=== PATIENT | female | born 1945 | race Caucasian/White ===

== ENCOUNTER 2017-06-02 08:07 | Emergency (ER) | payer MEDICARE ==
[2012-12-31 10:31] VITALS: BP 142/89
[2017-06-02] MEDS ORDERED: Zofran 4 MG/2 ML VIAL IV ONE (08:29)
[2017-06-02] MEDS ORDERED: SUBLIMAZE 100 MCG/2 ML IV ONE (08:29)
[2017-06-02] MEDS ORDERED: Sodium Chloride 0.9% 1000 ML 1,000 ML IV SCH (08:30)
[2017-06-02 08:31] VITALS: O2SAT 97
[2017-06-02] MEDS ORDERED: SUBLIMAZE 100 MCG/2 ML ONE (08:36)
[2017-06-02] MEDS ORDERED: Zofran 4 MG/2 ML VIAL ONE (08:36)
[2017-06-02] MEDS ORDERED: Sodium Chloride 0.9% 1000 ML 1,000 ML ONE (08:37)
--- NOTE | 2017-06-02 08:54 | ERPHSYRPT ---
- History of Present Illness Time Seen by Provider: 06/02/17 08:18 Historian: patient, family () Patient Subjective Stated Complaint: pt here for abd pain and vomiting , was dx with diverticulitis and placed on antibotics and states is not feeling better. Triage Nursing Assessment: pt alert, walked in, resp easy, skin w/d pink. abd soft, tender to touch, bsx4 Physician History: CC: abd pain Hx: 71 y/o patient of Dr Atkinson. She has vomiting and abdominal pain. She was admitted at [facility] this week for diverticulitis. She went home on 2 unknown abtx. She has continued vomiting. Some lower abd pain. Scant stools. No fever or chills. She has malaise. She came here as the vomiting is continuing. Severity of Pain-Max: moderate Severity of Pain-Current: moderate Allergies/Adverse Reactions: No Known Drug Allergies Allergy (Verified 11/12/14 08:41) Home Medications: Cyclobenzaprine HCl 10 mg [Flexeril 10 MG] 10 mg PO DAILY 12/31/12 [ History] Diclofenac Sodium 75 mg PO BID 12/31/12 [History] Levothyroxine Sodium 50 Mcg [Synthroid 50 Mcg] 50 mcg PO DAILY 12/31/12 [ History] Metoprolol Succinate 50 mg [Toprol Xl 50 MG] 50 mg PO DAILY 12/31/12 [ History] Olmesartan/Amlodipin/Hcthiazid [Tribenzor 40-5-25 mg Tablet] 1 each PO DAILY 12/06 [History] Calcium 1 tab PO DAILY 11/08/14 [History] Cholecalciferol (Vitamin D3) [Vitamin D] 3 tab PO DAILY 11/08/14 [History] Multivitamin [Multivitamins] 1 tab PO DAILY 11/08/14 [History] Hx Influenza Vaccination/Date Given: Yes Hx Pneumococcal Vaccination/Date Given: Yes Immunizations Up to Date: Yes - Review of Systems Constitutional: Malaise, No Fever, No Chills Eyes: No Symptoms Ears, Nose, & Throat: No Symptoms Respiratory: No Cough Cardiac: No Chest Pain Abdominal/Gastrointestinal: Abdominal Pain, Nausea, Vomiting, No Diarrhea Genitourinary Symptoms: No Dysuria Skin: No Rash Neurological: No Focal Weakness, No Parasthesia All Other Systems: Reviewed and Negative - Past Medical History Pertinent Past Medical History: Yes Neurological History: No Pertinent History ENT History: No Pertinent History Cardiac History: High Cholesterol, Hypertension Respiratory History: No Pertinent History Endocrine Medical History: Diabetes Type II, Hypothyroidism Musculoskeletal History: Fibromyalgia GI Medical History: Diverticulitis, GERD History: No Pertinent History Psycho-Social History: No Pertinent History Female Reproductive Disorders: No Pertinent History - Past Surgical History Past Surgical History: Yes Neuro Surgical History: No Pertinent History Cardiac: No Pertinent History Respiratory: No Pertinent History Gastrointestinal: Appendectomy, Cholecystectomy Genitourinary: Other Musculoskeletal: Orthopedic Surgery Female Surgical History: Hysterectomy - Social History Smoking Status: Never smoker Exposure to second hand smoke: No Drug Use: none Patient Lives Alone: No - Female History Hx Last Menstrual Period: post - Nursing Vital Signs Nursing Vital Signs: Initial Vital Signs Temperature 97.5 F 06/02/17 08:23 Pulse Rate 64 06/02/17 08:23 Respiratory Rate 18 06/02/17 08:23 Blood Pressure 142/94 06/02/17 08:23 O2 Sat by Pulse Oximetry 97 06/02/17 08:23 Pain Scale Pain Intensity 2 - Physical Exam General Appearance: alert, other (ambulatory) Eye Exam: PERRL/EOMI Ears, Nose, Throat Exam: normal ENT inspection, moist mucous membranes Neck Exam: normal inspection, non-tender, supple Respiratory Exam: normal breath sounds Cardiovascular Exam: regular rate/rhythm Gastrointestinal/Abdomen Exam: soft, tenderness (mild lower, nondistended, no guarding, no mass) Back Exam: normal inspection, No CVA tenderness Extremity Exam: normal inspection, normal range of motion Neurologic Exam: alert, oriented x 3, cooperative, night court magistrate II-XII nml as tested, sensation nml, No motor deficits Skin Exam: warm, dry, No rash SpO2 Interpretation: normal SpO2: 97 Oxygen Delivery: Room Air - Course Nursing assessment & vital signs reviewed: Yes EKG Interpreted by Me: RATE (55), Sinus Zach, NORMAL AXIS, NORMAL INTERVALS ( QTc 410), NORMAL QRS, NORMAL ST-T, Other (left atrial enlargement) - Radiology Exams AAS X-ray Interpretation: Reviewed by me (no obstr or free air) Ordered Tests: Active Orders 24 hr Category Date Time Status Clean Catch Urine Specimen STAT Care 06/02/17 08:29 Active EKG-ER Only STAT Care 06/02/17 08:29 Active IV Insertion STAT Care 06/02/17 08:29 Active NPO (ED) STAT Care 06/02/17 08:29 Active PO Popsicle STAT Care 06/02/17 09:59 Active OBSTR/ACUTE ABDOMEN SERIES Stat Exams 06/02/17 08:30 Completed CBC W DIFF Stat Lab 06/02/17 08:29 Completed CMP Stat Lab 06/02/17 08:29 Completed CULTURE,URINE Stat Lab 06/02/17 08:30 Received LIPASE Stat Lab 06/02/17 08:29 Completed Lactic Acid Stat Lab 06/02/17 08:29 Completed UA W/ MICROSCOPIC Stat Lab 06/02/17 08:30 Completed Medication Summary Generic Name Dose Route Start Last Admin Trade Name Freq PRN Reason Stop Dose Admin Sodium Chloride 1,000 mls @ 100 mls/hr 06/02/17 08:30 06/02/17 09:04 Sodium Chloride 0.9% 1000 Ml IV 07/02/17 08:29 100 mls/hr .Q10H STEVEN Administration Discontinued Medications Generic Name Dose Route Start Last Admin Trade Name Freq PRN Reason Stop Dose Admin Fentanyl Citrate 50 mcg 06/02/17 08:29 06/02/17 09:03 Sublimaze 100 Mcg/2 Ml IV 06/02/17 08:30 50 mcg STAT ONE Administration Fentanyl Citrate Confirm 06/02/17 08:36 Sublimaze 100 Mcg/2 Ml Administered 06/02/17 08:37 Dose 100 mcg .ROUTE .STK-MED ONE Ondansetron HCl 4 mg 06/02/17 08:29 06/02/17 09:04 Zofran 4 Mg/2 Ml Vial IV 06/02/17 08:30 4 mg STAT ONE Administration Ondansetron HCl Confirm 06/02/17 08:36 Zofran 4 Mg/2 Ml Vial Administered 06/02/17 08:37 Dose 4 mg .ROUTE .STK-MED ONE Lab/Rad Data: Laboratory Result Diagrams 06/02/17 08:29 06/02/17 08:29 Laboratory Results 06/02/17 06/02/17 06/02/17 Range/Units 08:30 08:29 08:29 WBC (4.0-10.5) K/mm3 RBC (4.1-5.4) M/mm3 Hgb (12.0-16.0) gm/dl Hct (35-47) % MCV (78-100) fl MCH (26-32) pg MCHC (32-36) g/dl RDW (11.5-14.0) % Plt Count (150-450) K/mm3 MPV (6-9.5) fl Gran % (36.0-66.0) % Lymphocytes % (24.0-44.0) % Monocytes % (0.0-12.0) % Eosinophils % (0.00-5.0) % Basophils % (0.0-0.4) % Basophils # (0-0.4) Sodium 129 L (136-145) mEq/L Potassium 3.2 L (3.5-5.1) mEq/L Chloride 95 L (98-107) mEq/L Carbon Dioxide 23.4 (21-32) mEq/L Anion Gap 14.2 (5-15) MEQ/L BUN 16 (9-20) mg/dL Creatinine 1.07 (0.55-1.30) mg/dl Estimated GFR 54 ML/MIN Glucose 148 H (70-110) MG/DL Lactic Acid 1.3 (0.4-2.0) Calcium 9.6 (8.5-10.1) mg/dL Total Bilirubin 0.50 (0.2-1.0) mg/dL AST 20 (15-37) U/L ALT 15 (12-78) U/L Alkaline Phosphatase 87 (46-116) U/L Serum Total Protein 7.0 (6.4-8.2) gm/dL Albumin 3.6 (3.4-5.0) g/dL Lipase 108 (73-393) U/L Ur Collection Type CLEAN CATCH Urine Color HENRY (YELLOW) Urine Appearance HAZY (CLEAR) Urine pH 6.0 (5-6) Ur Specific [place] 1.020 (1.005-1.025) Urine Protein 100 (Negative) Urine Ketones SMALL (NEGATIVE) Urine Blood NEGATIVE (0-5) Ricky/ul Urine Nitrite NEGATIVE (NEGATIVE) Urine Bilirubin NEGATIVE (NEGATIVE) Urine Urobilinogen NORMAL (0-1) mg/dL Ur Leukocyte Esterase 2+ (NEGATIVE) Urine Microscopic RBC 0-2 (0-2) /HPF Urine Microscopic WBC 2-5 (0-5) /HPF Ur Epithelial Cells MODERATE (FEW) /HPF Urine Bacteria MODERATE (NEGATIVE) /HPF Hyaline Casts 25-50 (0-2) /LPF Urine Mucus MODERATE (NEGATIVE) /HPF Urine Culture Reflexed YES (NO) Urine Glucose NEGATIVE (NEGATIVE) mg/dL Specimen Received 06-02-17 0900 06/02/17 Range/Units 08:29 WBC 12.9 H (4.0-10.5) K/mm3 RBC 4.83 (4.1-5.4) M/mm3 Hgb 14.2 (12.0-16.0) gm/dl Hct 42.2 (35-47) % MCV 87.4 (78-100) fl MCH 29.4 (26-32) pg MCHC 33.6 (32-36) g/dl RDW 13.2 (11.5-14.0) % Plt Count 480 H (150-450) K/mm3 MPV 9.5 (6-9.5) fl Gran % 79.2 H (36.0-66.0) % Lymphocytes % 12.2 L (24.0-44.0) % Monocytes % 8.2 (0.0-12.0) % Eosinophils % 0.2 (0.00-5.0) % Basophils % 0.2 (0.0-0.4) % Basophils # 0.03 (0-0.4) Sodium (136-145) mEq/L Potassium (3.5-5.1) mEq/L Chloride (98-107) mEq/L Carbon Dioxide (21-32) mEq/L Anion Gap (5-15) MEQ/L BUN (9-20) mg/dL Creatinine (0.55-1.30) mg/dl Estimated GFR ML/MIN Glucose (70-110) MG/DL Lactic Acid (0.4-2.0) Calcium (8.5-10.1) mg/dL Total Bilirubin (0.2-1.0) mg/dL AST (15-37) U/L ALT (12-78) U/L Alkaline Phosphatase (46-116) U/L Serum Total Protein (6.4-8.2) gm/dL Albumin (3.4-5.0) g/dL Lipase (73-393) U/L Ur Collection Type Urine Color (YELLOW) Urine Appearance (CLEAR) Urine pH (5-6) Ur Specific [place] (1.005-1.025) Urine Protein (Negative) Urine Ketones (NEGATIVE) Urine Blood (0-5) Ricky/ul Urine Nitrite (NEGATIVE) Urine Bilirubin (NEGATIVE) Urine Urobilinogen (0-1) mg/dL Ur Leukocyte Esterase (NEGATIVE) Urine Microscopic RBC (0-2) /HPF Urine Microscopic WBC (0-5) /HPF Ur Epithelial Cells (FEW) /HPF Urine Bacteria (NEGATIVE) /HPF Hyaline Casts (0-2) /LPF Urine Mucus (NEGATIVE) /HPF Urine Culture Reflexed (NO) Urine Glucose (NEGATIVE) mg/dL Specimen Received - Progress Progress Note: 06/02/17 11:18 She ate a popsicle and has had no vomiting here. She is on cipro and flagyl. She was told needs follow up with Dr Atkinson in 1-2 days and Na needs to be rechecked. Will add zofran at home. Counseled pt/family regarding: lab results, diagnosis, need for follow-up, rad results - Departure Time of Disposition: 11:18 Departure Disposition: Home Clinical Impression: Vomiting, Diverticulitis, Hyponatremia Condition: Stable Critical Care Time: No Referrals: GRACIE ATKINSON [Primary Care Provider] - Instructions: Vomiting -- Adult, Diverticulitis Additional Instructions: Rx zofran to [facility]. Continue cipro and flagyl. Spencer diet. Call to see Dr Atkinson in 1-2 days. You will need to recheck Sodium level this week. Return for fever, passing blood, confusion, or concerns. Tylenol as directed for discomfort. Prescriptions: Ondansetron ODT 4 MG [Zofran Odt 4 mg] 1 tab PO Q6H PRN PRN #10 tab.rapdis PRN Reason: Nausea/Vomiting
[2017-06-02 09:03] LABS: BASOPHIL % 0.2 % (0.0-0.4); Basophil (Absolute #) 0.03 (0-0.4); Eosinophil % 0.2 % (0.00-5.0); Eosinophil (Absolute #) 0.02 (0-0.5); Granulocyte Absolute (ANC) 10.24 (1.4-6.9); Granulocytes % 79.2 % (36.0-66.0); Hematocrit 42.2 % (35-47); Hemoglobin 14.2 gm/dl (12.0-16.0); Lymphocyte (Absolute #) 1.58 (1.0-4.6); Lymphocytes % 12.2 % (24.0-44.0); Mean Cell Volume 87.4 fl (78-100); Mean Corpuscular Hemoglobin 29.4 pg (26-32); Mean Corpuscular Hgb Concent. 33.6 g/dl (32-36); Mean Platelet Volume 9.5 fl (6-9.5); Monocyte (Absolute #) 1.06 (0.0-1.3); Monocytes % 8.2 % (0.0-12.0); Platelet Count 480 K/mm3 (150-450); Red Blood Count 4.83 M/mm3 (4.1-5.4); Red Cell Distribution Width 13.2 % (11.5-14.0); White Blood Count 12.9 K/mm3 (4.0-10.5)
[2017-06-02 09:28] LABS: Appearance HAZY (CLEAR); Bilirubin NEGATIVE (NEGATIVE); Blood NEGATIVE Ery/ul (0-5); Glucose NEGATIVE (NEGATIVE); Ketones SMALL (NEGATIVE); Leukocyte Esterase 2+ (NEGATIVE); Nitrite NEGATIVE (NEGATIVE); Protein,Urine Dip 100 (Negative); Urobilinogen NORMAL mg/dL (0-1)
[2017-06-02 09:31] LABS: Bacteria MODERATE /HPF (NEGATIVE); Epithelial Cells MODERATE /HPF (FEW); Hyaline Casts 25-50 /LPF (0-2); Mucus MODERATE /HPF (NEGATIVE)
[2017-06-02 09:31] LABS: ALBUMIN 3.6 g/dL (3.4-5.0); ANION GAP 14.2 MEQ/L (5-15); BILIRUBIN,TOTAL 0.5 mg/dL (0.2-1.0); Calcium 9.6 mg/dL (8.5-10.1); Carbon Dioxide 23.4 mEq/L (21-32); Creatinine 1 1.07 mg/dl (0.55-1.30); Potassium 3.2 mEq/L (3.5-5.1)
--- NOTE | 2017-06-02 10:42 | XRAY ---
Indication: Abdominal pain and vomiting. Comparison: Chest exam February 09, 2016. 2 views of the abdomen nonacute and nonobstructed with cholecystotomy clips. Solid organs unremarkable. Osseous structures intact with lower lumbar degenerative changes. Single PA chest again demonstrates normal heart, lungs, and bony thorax. Impression: Negative abdomen. Normal 1 view chest.
[2017-06-02 11:20] VITALS: BP 126/50; PULSE 62
== END 2017-06-02 11:29 | disposition home or self-care (01) ==
LOC: ED 08:07
DX: R11.10 Vomiting, unspecified (principal); K57.92 Diverticulitis of intestine, part unspecified, without perforation or abscess without bleeding; E87.1 Hypo-osmolality and hyponatremia; R53.81 Other malaise; Z79.899 Other long term (current) drug therapy
CPT/HCPCS: 36000; 36415; 74022; 80053; 81000; 83605; 83690; 85025; 87086; 93005; 96360; 96361; 96374; 96375; 99284; J2405; J3010

== ENCOUNTER 2017-06-04 09:31 | Inpatient (IN) | payer MEDICARE ==
[2017-06-04] MEDS ORDERED: Sodium Chloride 0.9% 10 ML FLUSH Syringe IV PRN (11:45)
[2017-06-04] MEDS ORDERED: Norco 10/325 MG Tablet PO PRN (11:46)
[2017-06-04 13:41] LABS: BASOPHIL % 0.2 % (0.0-0.4); Basophil (Absolute #) 0.02 (0-0.4); Eosinophil % 0.4 % (0.00-5.0); Eosinophil (Absolute #) 0.05 (0-0.5); Granulocyte Absolute (ANC) 9.53 (1.4-6.9); Hematocrit 40.4 % (35-47); Hemoglobin 13.7 gm/dl (12.0-16.0); Lymphocyte (Absolute #) 1.99 (1.0-4.6); Lymphocytes % 15.7 % (24.0-44.0); Mean Corpuscular Hemoglobin 29.8 pg (26-32); Mean Corpuscular Hgb Concent. 33.9 g/dl (32-36); Mean Platelet Volume 9.7 fl (6-9.5); Monocyte (Absolute #) 1.11 (0.0-1.3); Monocytes % 8.7 % (0.0-12.0); Platelet Count 481 K/mm3 (150-450); Red Blood Count 4.59 M/mm3 (4.1-5.4); White Blood Count 12.7 K/mm3 (4.0-10.5)
[2017-06-04 13:58] LABS: ALBUMIN 3.5 g/dL (3.4-5.0); ANION GAP 12.7 MEQ/L (5-15); BILIRUBIN,TOTAL 0.4 mg/dL (0.2-1.0); Calcium 9.4 mg/dL (8.5-10.1); Carbon Dioxide 27.7 mEq/L (21-32); Creatinine 1 1.17 mg/dl (0.55-1.30); MAGNESIUM 2.1 mg/dL (1.8-2.4); Potassium 3.3 mEq/L (3.5-5.1)
--- NOTE | 2017-06-04 14:22 | XRAY ---
Indication: Vomiting, dehydration, diverticulitis. Comparison: June 02, 2017. 2 views of the abdomen demonstrates nonspecific nonobstructed bowel gas pattern with minimal fluid leveling. Stable cholecystectomy clips and lower lumbar degenerative changes. Remaining solid organs are unremarkable. Stable PA chest again demonstrates normal heart, lungs, and bony thorax. Impression: Nonacute nonobstructed abdomen. Stable normal 1 view chest.
[2017-06-04] MEDS: FLAGYL 500 MG IVPB 500 MG/100 ML BAG IV SCH ×2 (14:26→21:27)
[2017-06-04] MEDS: Sodium Chloride 0.9% 10 ML FLUSH Syringe IV SCH ×2 (14:26→21:35)
[2017-06-04] MEDS: Levofloxacin 500MG/100ML D5W 500 MG/100 ML BAG IV SCH (15:00)
[2017-06-04] MEDS: Zofran 4 MG/2 ML VIAL IV PRN ×2 (15:00→21:31)
[2017-06-04 16:12] LABS: Appearance HAZY (CLEAR); Ph 6.5 (5-6); Specific Gravity 1.015 (1.005-1.025)
[2017-06-04 16:21] LABS: Bacteria FEW /HPF (NEGATIVE); Bilirubin NEGATIVE (NEGATIVE); Blood NEGATIVE Ery/ul (0-5); Epithelial Cells FEW /HPF (FEW); Glucose NEGATIVE (NEGATIVE); Ketones SMALL (NEGATIVE); Leukocyte Esterase NEGATIVE (NEGATIVE); Nitrite NEGATIVE (NEGATIVE); Protein,Urine Dip NEGATIVE (Negative); Urobilinogen NORMAL mg/dL (0-1); WBC 0-2 /HPF (0-5)
[2017-06-04] MEDS ORDERED: ZOFRAN ODT 4 MG PO PRN (16:42)
[2017-06-04] MEDS: NORVASC 5 MG PO SCH (17:49)
[2017-06-04] MEDS: Toprol Xl 100 MG PO SCH (17:49)
[2017-06-04] MEDS: Ecotrin 325 MG PO SCH (17:50)
[2017-06-04] MEDS: Benicar 20 MG PO SCH (17:51)
[2017-06-04] MEDS: hydroDIURIL 25 MG PO SCH (17:51)
[2017-06-04] MEDS: SYNTHROID 75 MCG PO SCH (17:52)
[2017-06-05] MEDS: Zofran 4 MG/2 ML VIAL IV PRN ×2 (05:52→20:00)
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
[2017-06-05 08:54] LABS: Hematocrit 38.6 % (35-47); Hemoglobin 13.1 gm/dl (12.0-16.0); Mean Cell Volume 88.3 fl (78-100); Mean Corpuscular Hgb Concent. 33.9 g/dl (32-36); Mean Platelet Volume 9.5 fl (6-9.5); Platelet Count 473 K/mm3 (150-450); Red Blood Count 4.37 M/mm3 (4.1-5.4); Red Cell Distribution Width 13.1 % (11.5-14.0)
[2017-06-05 09:45] LABS: ANION GAP 10.5 MEQ/L (5-15); Calcium 8.8 mg/dL (8.5-10.1); Carbon Dioxide 29.4 mEq/L (21-32); Creatinine 1 1.01 mg/dl (0.55-1.30); Potassium 3.3 mEq/L (3.5-5.1)
[2017-06-05] MEDS ORDERED: Sodium Chloride 0.9% 500 ML 500 ML IV ONE (09:50)
[2017-06-05] MEDS: PROTONIX 40 MG IV IV SCH (09:54)
[2017-06-05] MEDS: SYNTHROID 75 MCG PO SCH (09:58)
[2017-06-05] MEDS: hydroDIURIL 25 MG PO SCH (09:58)
[2017-06-05] MEDS: Benicar 20 MG PO SCH (09:58)
[2017-06-05] MEDS: NORVASC 5 MG PO SCH (09:58)
[2017-06-05] MEDS: Toprol Xl 100 MG PO SCH (09:59)
[2017-06-05] MEDS: Ecotrin 325 MG PO SCH (09:59)
[2017-06-05] MEDS ORDERED: [UNRECOGNIZED DRUG - OTHER] PO SCH (10:00)
[2017-06-05] MEDS ORDERED: OLMESARTAN PO SCH (10:00)
[2017-06-05] MEDS ORDERED: HYDROCHLOROTHIAZIDE PO SCH (10:00)
[2017-06-05] MEDS ORDERED: NON-FORMULARY ITEM (Amlodipine Besylate [Norvasc] 2.5 MG) PO SCH (10:00)
[2017-06-05] MEDS: Sodium Chloride 0.9% W/ 20 mEq KCl/LITER 1,000 ML IV SCH (10:32)
[2017-06-05] MEDS: FLAGYL 500 MG IVPB 500 MG/100 ML BAG IV SCH ×3 (10:33→21:00)
[2017-06-05] MEDS: Levofloxacin 500MG/100ML D5W 500 MG/100 ML BAG IV SCH (11:44)
[2017-06-06] MEDS: Sodium Chloride 0.9% W/ 20 mEq KCl/LITER 1,000 ML IV SCH ×2 (00:57→10:32)
[2017-06-06 06:10] LABS: Granulocyte Absolute (ANC) 5.12 (1.4-6.9); Hematocrit 35.9 % (35-47); Mean Cell Volume 88.9 fl (78-100); Mean Corpuscular Hemoglobin 29.7 pg (26-32); Mean Corpuscular Hgb Concent. 33.4 g/dl (32-36); Mean Platelet Volume 9.6 fl (6-9.5); Platelet Count 412 K/mm3 (150-450); Red Blood Count 4.04 M/mm3 (4.1-5.4); Red Cell Distribution Width 13.3 % (11.5-14.0); White Blood Count 9.1 K/mm3 (4.0-10.5)
[2017-06-06 06:47] LABS: ANION GAP 10.5 MEQ/L (5-15); BLOOD UREA NITROGEN 9 mg/dL (9-20); CHLORIDE 101 mEq/L (98-107); Calcium 8.5 mg/dL (8.5-10.1); Carbon Dioxide 25.3 mEq/L (21-32); Creatinine 1 0.81 mg/dl (0.55-1.30); EST GLOMERULAR FILTRATION RATE > 60 ML/MIN; Glucose 104 MG/DL (70-110); Potassium 3.2 mEq/L (3.5-5.1); SODIUM 134 mEq/L (136-145)
--- NOTE | 2017-06-06 09:11 | PCM.NOTE ---
Date and Time: 06/06/17906 Subjective Assessment: Pt had some nausea last night but not through the day yesterday. She ate breakfast this morning (full liquid) and tolerated it well. All day yesterday when she ate she had watery diarrhea (sample taken for C. diff and pending). This morning she had a stool but it was thicker. Objective Exam General Appearance: no apparent distress, alert Neurologic Exam: oriented x 3, cooperative Skin Exam: normal color, warm, dry, No rash Respiratory Exam: normal breath sounds, lungs clear, No crackles/rales, No rhonchi, No wheezing Cardiovascular Exam: regular rate/rhythm, normal heart sounds, murmur (II/ sys murmur) Gastrointestinal/Abdomen Exam: soft, normal bowel sounds, tenderness (very mild RLQ), No distention, No guarding, No rebound Extremity Exam: swelling (mild gen non pitting edema LE bilat) OBJECTIVE DATA Vital Signs: Vital Signs - 24 hr Temp Pulse Resp BP Pulse Ox 06/06/17 07:06 98.1 F 67 18 120/78 96 06/06/17 04:00 97.9 F 69 18 141/67 96 06/06/17 00:05 98.8 F 71 18 106/54 96 06/05/17 20:00 98.3 F 63 20 115/60 96 06/05/17 16:00 99.4 F 62 20 117/56 93 L 06/05/17 12:00 98.4 F 64 18 126/58 95 Pain Assessment - Last Documented Pain Intensity 0 Pain Scale Used 0-10 Pain Scale Intake and Output: Intake & Output 06/03/17 06/04/17 06/05/17 06/06/17 11:59 11:59 11:59 11:59 Intake Total 2540 4702 Output Total 2600 4600 Balance -60 102 Weight 104.2 kg Lab Results: Lab Results-Last 24 Hours 06/05/17 06/05/17 06/06/17 Range/Units 08:30 08:30 05:43 WBC 10.0 9.1 (4.0-10.5) K/mm3 RBC 4.37 4.04 L (4.1-5.4) M/mm3 Hgb 13.1 12.0 (12.0-16.0) gm/dl Hct 38.6 35.9 (35-47) % MCV 88.3 88.9 (78-100) fl MCH 30.0 29.7 (26-32) pg MCHC 33.9 33.4 (32-36) g/dl RDW 13.1 13.3 (11.5-14.0) % Plt Count 473 H 412 (150-450) K/mm3 MPV 9.5 9.6 H (6-9.5) fl Sodium 128 L (136-145) mEq/L Potassium 3.3 L (3.5-5.1) mEq/L Chloride 91 L (98-107) mEq/L Carbon Dioxide 29.4 (21-32) mEq/L Anion Gap 10.5 (5-15) MEQ/L BUN 16 (9-20) mg/dL Creatinine 1.01 (0.55-1.30) mg/dl Estimated GFR 58 ML/MIN Glucose 120 H (70-110) MG/DL Calcium 8.8 (8.5-10.1) mg/dL 06/06/17 Range/Units 05:43 WBC (4.0-10.5) K/mm3 RBC (4.1-5.4) M/mm3 Hgb (12.0-16.0) gm/dl Hct (35-47) % MCV (78-100) fl MCH (26-32) pg MCHC (32-36) g/dl RDW (11.5-14.0) % Plt Count (150-450) K/mm3 MPV (6-9.5) fl Sodium 134 L (136-145) mEq/L Potassium 3.2 L (3.5-5.1) mEq/L Chloride 101 (98-107) mEq/L Carbon Dioxide 25.3 (21-32) mEq/L Anion Gap 10.5 (5-15) MEQ/L BUN 9 (9-20) mg/dL Creatinine 0.81 (0.55-1.30) mg/dl Estimated GFR > 60 ML/MIN Glucose 104 (70-110) MG/DL Calcium 8.5 (8.5-10.1) mg/dL Radiology Exams: Radiology Procedures Category Date Time Status OBSTR/ACUTE ABDOMEN SERIES Routine Exams 06/04/17 12:45 Completed Assessment/Plan (1) Diverticulitis Current Visit: Yes Status: Acute Assessment & Plan: Improved, on IV flagyl and levaquin. Her nausea is improved. Will see how diarrhea does today. Plan, tentatively, is to send pt home tomorrow if less nausea and diarrhea. Will advance to bland diet this afternoon if she tolerates breakfast well. Code(s): K57.92 - DVTRCLI OF INTEST, PART UNSP, W/O PERF OR ABSCESS W/O BLEED (2) Hypokalemia Current Visit: Yes Status: Acute Assessment & Plan: will add 20 mEq K daily to medication regimen Code(s): E87.6 - HYPOKALEMIA (3) Nausea Current Visit: Yes Status: Acute Assessment & Plan: improved Code(s): R11.0 - NAUSEA (4) Diarrhea Current Visit: Yes Status: Acute Code(s): R19.7 - DIARRHEA, UNSPECIFIED (5) Hyponatremia Current Visit: Yes Status: Acute Assessment & Plan: improved, from 125 on admission to 134 today. Code(s): E87.1 - HYPO-OSMOLALITY AND HYPONATREMIA
[2017-06-06] MEDS: FLAGYL 500 MG IVPB 500 MG/100 ML BAG IV SCH ×3 (09:45→20:36)
[2017-06-06] MEDS: PROTONIX 40 MG IV IV SCH (09:45)
[2017-06-06] MEDS: NORVASC 5 MG PO SCH (09:45)
[2017-06-06] MEDS: hydroDIURIL 25 MG PO SCH (09:46)
[2017-06-06] MEDS: SYNTHROID 75 MCG PO SCH (09:46)
[2017-06-06] MEDS: Benicar 20 MG PO SCH (09:46)
[2017-06-06] MEDS: Toprol Xl 100 MG PO SCH (09:47)
[2017-06-06] MEDS: Klor Con 10 MEQ PO SCH (09:47)
[2017-06-06] MEDS: Ecotrin 325 MG PO SCH (09:47)
[2017-06-06] MEDS: Sodium Chloride 0.9% 10 ML FLUSH Syringe IV SCH ×3 (09:53→20:36)
[2017-06-06] MEDS: Levofloxacin 500MG/100ML D5W 500 MG/100 ML BAG IV SCH (10:32)
[2017-06-06 10:45] LABS: 027 TOX PROD PRESUMPTIVE NEGATIVE (NEGATIVE); TOXIGENIC C. DIFF ORG NEGATIVE (NEGATIVE)
[2017-06-06 11:42] LABS: Eosinophil 1 % (0.00-3.0); Lymphocytes 33 % (24-44); Monocyte 2 % (0.0-12.0); Neutrophils 64 % (36.0-66.0); Total Cells Counted 100
[2017-06-06 11:43] LABS: Platelet Estimate NORMAL (NORMAL)
[2017-06-07] MEDS: Sodium Chloride 0.9% W/ 20 mEq KCl/LITER 1,000 ML IV SCH (01:38)
[2017-06-07 05:05] VITALS: O2SAT 95
--- NOTE | 2017-06-07 08:58 | PCM.DS ---
Discharge Summary Date of Admission: 06/05/17 09:31 Admitting Physician: GRACIE WALLIS Primary Care Provider: GRACIE WALLIS Allergies Allergies No Known Drug Allergies Allergy (Verified 06/04/17 11:36) Hospital Summary - Hospital Course Hospital Course: Pt admitted for diverticulitis and dehydration after seeing SACK FILLER in office (I checked pt as well). She had been in [facility] overnight and went home, didn't feel any better, still had abd pain and nausea. Her nausea was persistentt her first 2 d in [facility]. Today she is denying nause. Keyur full liquids. No longer complaining of diarrhea (her c. diff neg yesterday). Will feed bland diet and d /c after lunch, depending on the weather and road conditions. - Vitals & Intake/Output Vital Signs: Vital Signs Temperature 98.6 F 06/07/17 08:00 Pulse Rate 72 06/07/17 08:00 Respiratory Rate 22 06/07/17 08:00 Blood Pressure 146/76 06/07/17 08:00 O2 Sat by Pulse Oximetry 95 06/07/17 08:00 Intake & Output: Intake & Output 06/04/17 06/05/17 06/06/17 06/07/17 11:59 11:59 11:59 11:59 Intake Total 2540 4902 4066 Output Total 2600 4600 3100 Balance -60 302 966 Weight 104.2 kg - Lab Result Diagrams: 06/06/17 05:43 06/06/17 05:43 Lab Results-Last 24 Hrs: Lab Results-Last 24 Hours 06/06/17 06/06/17 Range/Units 05:43 07:50 Segmented Neutrophils 64 (36.0-66.0) % Lymphocytes (Manual) 33 (24-44) % Monocytes (Manual) 2 (0.0-12.0) % Eosinophils (Manual) 1 (0.00-3.0) % Differential Comment NORMAL Platelet Estimate NORMAL (NORMAL) Stl C. diff Tox B Gene NEGATIVE (NEGATIVE) C.difficile [id number] PRESUMPTIVE NEGATIVE (NEGATIVE) Discharge Exam General Appearance: no apparent distress, alert Neurologic Exam: oriented x 3, cooperative Skin Exam: normal color, warm, dry, No rash Respiratory Exam: normal breath sounds, lungs clear, No crackles/rales, No rhonchi, No wheezing Cardiovascular Exam: regular rate/rhythm, normal heart sounds, murmur (II/ as usual) Gastrointestinal/Abdomen Exam: soft, normal bowel sounds, No tenderness, No distention, No mass Extremity Exam: No pedal edema, No swelling Back Exam: normal inspection, No rash Final Diagnosis/Problem List - Final Discharge Diagnosis/Problem (1) Diverticulitis Current Visit: Yes Status: Acute Assessment & Plan: Much improved. Home today on bland diet, levaquin and flagyl. F/u in 1 wk with me. (2) Hypokalemia Current Visit: Yes Status: Acute Assessment & Plan: recheck this a.m. (3) Nausea Current Visit: Yes Status: Resolved (4) Diarrhea Current Visit: Yes Status: Resolved (5) Hyponatremia Current Visit: Yes Status: Acute Assessment & Plan: recheck - Discharge Disposition: Home, Self-Care Condition: Stable Prescriptions: New Levofloxacin [Levaquin] 500 mg PO DAILY #7 tablet Continue Diclofenac Sodium 75 mg PO BID Multivitamin [Multivitamins] 1 tab PO DAILY Ondansetron ODT 4 MG [Zofran Odt 4 mg] 1 tab PO Q6H PRN PRN #10 tab.rapdis PRN Reason: Nausea/Vomiting Amlodipine Besylate [Norvasc] 2.5 mg PO DAILY Metoprolol Succinate 100 mg [Toprol Xl 100 MG] 100 mg PO DAILY Olmesartan/Hydrochlorothiazide [Benicar Hct 40-25 mg Tablet] 1 each PO DAILY Levothyroxine Sodium 75 Mcg [Synthroid 75 Mcg] 75 mcg PO DAILY Aspirin [Aspirin EC] 325 mg PO DAILY Cholecalciferol (Vitamin D3) [Vitamin D] 2 cap PO DAILY Pitavastatin Calcium [Livalo] 1 mg PO BID Metronidazole 500 mg [Flagyl 500 MG] 500 mg PO TID #15 tablet Discontinued Ciprofloxacin [Cipro] 500 mg PO BID Follow up with: GRACIE WALLIS [Primary Care Provider] - 1 Week Forms: Patient Portal Information
[2017-06-07 09:13] LABS: Hematocrit 36.4 % (35-47); Hemoglobin 12.1 gm/dl (12.0-16.0); Mean Corpuscular Hgb Concent. 33.2 g/dl (32-36); Mean Platelet Volume 9.5 fl (6-9.5); Platelet Count 450 K/mm3 (150-450); Red Cell Distribution Width 14.1 % (11.5-14.0); White Blood Count 8.4 K/mm3 (4.0-10.5)
[2017-06-07 09:17] LABS: ANION GAP 10.2 MEQ/L (5-15); BLOOD UREA NITROGEN 5 mg/dL (9-20); CHLORIDE 101 mEq/L (98-107); Calcium 8.6 mg/dL (8.5-10.1); Creatinine 1 0.87 mg/dl (0.55-1.30); EST GLOMERULAR FILTRATION RATE > 60 ML/MIN; Glucose 152 MG/DL (70-110); Potassium 3.9 mEq/L (3.5-5.1); SODIUM 134 mEq/L (136-145)
[2017-06-07 09:18] LABS: Mean Corpuscular Hemoglobin 30.2 pg (26-32)
[2017-06-07] MEDS: FLAGYL 500 MG IVPB 500 MG/100 ML BAG IV SCH (10:16)
[2017-06-07] MEDS: Levofloxacin 500MG/100ML D5W 500 MG/100 ML BAG IV SCH (10:16)
[2017-06-07] MEDS: Toprol Xl 100 MG PO SCH (10:17)
[2017-06-07] MEDS: Klor Con 10 MEQ PO SCH (10:17)
[2017-06-07] MEDS: hydroDIURIL 25 MG PO SCH (10:17)
[2017-06-07] MEDS: Ecotrin 325 MG PO SCH (10:17)
[2017-06-07] MEDS: SYNTHROID 75 MCG PO SCH (10:17)
[2017-06-07] MEDS: NORVASC 5 MG PO SCH (10:17)
[2017-06-07] MEDS: PROTONIX 40 MG IV IV SCH (10:17)
[2017-06-07] MEDS: Benicar 20 MG PO SCH (10:17)
[2017-06-07 11:44] VITALS: BP 138/67; PULSE 62
== END 2017-06-07 13:45 | disposition home or self-care (01) | DRG 392 ==
LOC: MED SURG 09:31 → OBSVTOIN 06-05 09:31
PROVIDERS: ADMIT Family Medicine; ATTEND Family Medicine
DX: K57.92 Diverticulitis of intestine, part unspecified, without perforation or abscess without bleeding (principal); E87.1 Hypo-osmolality and hyponatremia; E87.6 Hypokalemia; I10 Essential (primary) hypertension; E11.9 Type 2 diabetes mellitus without complications; E03.9 Hypothyroidism, unspecified; M79.7 Fibromyalgia; K21.9 Gastro-esophageal reflux disease without esophagitis; E86.0 Dehydration; G58.8 Other specified mononeuropathies; Z86.73 Personal history of transient ischemic attack (TIA), and cerebral infarction without residual deficits; Z79.899 Other long term (current) drug therapy
CPT/HCPCS: 36415; 74022; 80048; 80053; 81000; 82150; 83690; 83735; 85025; 85027; 87493; G0378; J1956; J2405; A9270-GY

== ENCOUNTER 2017-06-14 15:20 | Inpatient (IN) | payer MEDICARE ==
[2017-06-14] MEDS ORDERED: Zofran 4 MG/2 ML VIAL IV PRN (15:51)
[2017-06-14] MEDS ORDERED: Lactated Ringers 500 ML IV SCH (16:00)
[2017-06-14 17:06] LABS: AMYLASE 45 U/L (25-115); LIPASE 109 U/L (73-393)
[2017-06-14] MEDS ORDERED: PROVENTIL COMMON CANISTER IH PRN (17:06)
[2017-06-14] MEDS ORDERED: Mylicon 80MG PO PRN (17:08)
[2017-06-14] MEDS ORDERED: Ventolin Hfa MDI IH SCH (17:15)
[2017-06-14] MEDS: Lactated Ringers 1,000 ML IV SCH (18:02)
[2017-06-14] MEDS: PROTONIX 40 MG IV IV SCH (18:02)
[2017-06-14] MEDS: Zosyn 3.375GM/100 Ml D5W 3.375 GM/100 ML IVPB IV SCH ×2 (18:02→23:19)
[2017-06-14] MEDS ORDERED: SIMETHICONE 125 MG PO SCH (22:00)
[2017-06-14] MEDS ORDERED: TYLENOL 325 MG PO PRN (23:32)
[2017-06-15] MEDS: Lactated Ringers 1,000 ML IV SCH (04:24)
[2017-06-15] MEDS: Zosyn 3.375GM/100 Ml D5W 3.375 GM/100 ML IVPB IV SCH ×4 (05:06→23:12)
[2017-06-15 06:16] LABS: Hematocrit 37.4 % (35-47); Hemoglobin 12.6 gm/dl (12.0-16.0); Mean Cell Volume 89.3 fl (78-100); Mean Corpuscular Hemoglobin 30.1 pg (26-32); Mean Corpuscular Hgb Concent. 33.7 g/dl (32-36); Mean Platelet Volume 9.1 fl (6-9.5); Platelet Count 490 K/mm3 (150-450); Red Blood Count 4.19 M/mm3 (4.1-5.4); Red Cell Distribution Width 13.9 % (11.5-14.0); White Blood Count 10.6 K/mm3 (4.0-10.5)
[2017-06-15 07:01] LABS: ANION GAP 8.4 MEQ/L (5-15); Calcium 9.2 mg/dL (8.5-10.1); Carbon Dioxide 30.8 mEq/L (21-32); Creatinine 1 1.05 mg/dl (0.55-1.30)
[2017-06-15 07:04] LABS: Potassium 2.8 mEq/L (3.5-5.1)
[2017-06-15] MEDS: POTASSIUM CHLORIDE 20 mEq IN WATER 100ML 20 MEQ/100 ML BAG IV SCH ×2 (07:58→09:56)
[2017-06-15] MEDS ORDERED: NON-FORMULARY ITEM (Amlodipine Besylate [Norvasc] 2.5 MG) PO SCH (10:00)
[2017-06-15] MEDS ORDERED: OLMESARTAN PO SCH (10:00)
[2017-06-15] MEDS ORDERED: [UNRECOGNIZED DRUG - OTHER] PO SCH (10:00)
[2017-06-15] MEDS ORDERED: HYDROCHLOROTHIAZIDE PO SCH (10:00)
[2017-06-15] MEDS ORDERED: Ketamine HCl 50 MG/ML IJ ONE (10:19)
[2017-06-15] MEDS ORDERED: DIPRIVAN 200 MG/20 ML IV ONE (10:19)
[2017-06-15] MEDS: Benicar 20 MG PO SCH (10:47)
[2017-06-15] MEDS: NORVASC 5 MG PO SCH (10:48)
[2017-06-15] MEDS: hydroDIURIL 25 MG PO SCH (10:48)
[2017-06-15] MEDS: PROTONIX 40 MG IV IV SCH (10:49)
[2017-06-15] MEDS: Toprol Xl 100 MG PO SCH (10:49)
[2017-06-15] MEDS: SYNTHROID 75 MCG PO SCH (10:49)
--- NOTE | 2017-06-15 12:46 | PCM.NOTE ---
Date and Time: 06/15/17 1241 Subjective Assessment: Pt admitted from office yesterday with persistent epigastric pain and nausea. Was treated at [facility] a few weeks ago for diverticulitis (present on CT) - after being sent home she didn't feel much better so came to see me and was admitted for diverticulitis, treated with IV antibiotics. She did feel better after a couple of days and was discharged to home. She continued to have nausea and epigastric pain when she followed up with me yesterday. She was found to have elevated WBC and renal insufficiency that was new so was admitted for IV fluids and antibiotics. This morning she is feeling better but not normal, still having some epigastric pain and nausea. She is scheduled for an EGD with general surgery, thank you! - Review of Systems Constitutional: No Fever Abdominal/Gastrointestinal: Abdominal Pain, Nausea Objective Exam General Appearance: no apparent distress, alert Neurologic Exam: oriented x 3, cooperative Skin Exam: normal color, warm, dry, No rash Respiratory Exam: normal breath sounds, lungs clear, No crackles/rales, No rhonchi, No wheezing Cardiovascular Exam: regular rate/rhythm, normal heart sounds, murmur (Ii/ murmur as usual) Gastrointestinal/Abdomen Exam: soft, normal bowel sounds, tenderness (epigastrum ), No guarding, No rebound Extremity Exam: No pedal edema, No swelling Back Exam: normal inspection, No rash OBJECTIVE DATA Vital Signs: Vital Signs - 24 hr Temp Pulse Resp BP Pulse Ox 06/15/17 12:20 97.6 F 80 20 137/63 96 06/15/17 07:18 97.8 F 70 20 135/66 96 06/15/17 04:00 98.0 F 63 18 136/65 95 06/15/17 00:00 99.1 F 71 20 135/64 93 L 06/14/17 20:00 98.6 F 70 18 188/74 96 06/14/17 16:18 97.8 F 88 79 98 06/14/17 15:56 97.8 F 88 98 Pain Assessment - Last Documented Pain Intensity 0 Pain Scale Used 0-10 Pain Scale Intake and Output: Intake & Output 06/13/17 06/14/17 06/15/17 06/16/17 11:59 11:59 11:59 11:59 Intake Total 3117 0 Output Total 1300 450 Balance 1817 -450 Weight 101.9 kg Lab Results: Lab Results-Last 24 Hours 06/14/17 06/14/17 06/15/17 Range/Units 16:40 16:47 05:25 WBC 10.6 H (4.0-10.5) K/mm3 RBC 4.19 (4.1-5.4) M/mm3 Hgb 12.6 (12.0-16.0) gm/dl Hct 37.4 (35-47) % MCV 89.3 (78-100) fl MCH 30.1 (26-32) pg MCHC 33.7 (32-36) g/dl RDW 13.9 (11.5-14.0) % Plt Count 490 H (150-450) K/mm3 MPV 9.1 (6-9.5) fl Sodium (136-145) mEq/L Potassium (3.5-5.1) mEq/L Chloride (98-107) mEq/L Carbon Dioxide (21-32) mEq/L Anion Gap (5-15) MEQ/L BUN (9-20) mg/dL Creatinine (0.55-1.30) mg/dl Estimated GFR ML/MIN Glucose (70-110) MG/DL Lactic Acid 0.6 (0.4-2.0) Calcium (8.5-10.1) mg/dL Amylase 45 (25-115) U/L Lipase 109 (73-393) U/L 06/15/17 Range/Units 05:25 WBC (4.0-10.5) K/mm3 RBC (4.1-5.4) M/mm3 Hgb (12.0-16.0) gm/dl Hct (35-47) % MCV (78-100) fl MCH (26-32) pg MCHC (32-36) g/dl RDW (11.5-14.0) % Plt Count (150-450) K/mm3 MPV (6-9.5) fl Sodium 130 L (136-145) mEq/L Potassium 2.8 L* (3.5-5.1) mEq/L Chloride 93 L (98-107) mEq/L Carbon Dioxide 30.8 (21-32) mEq/L Anion Gap 8.4 (5-15) MEQ/L BUN 10 (9-20) mg/dL Creatinine 1.05 (0.55-1.30) mg/dl Estimated GFR 55 ML/MIN Glucose 111 H (70-110) MG/DL Lactic Acid (0.4-2.0) Calcium 9.2 (8.5-10.1) mg/dL Amylase (25-115) U/L Lipase (73-393) U/L Assessment/Plan (1) Renal insufficiency Current Visit: Yes Status: Acute Assessment & Plan: Cr from 1.32 yesterday to 1.05 this morning with IV fluids. (2) Abdominal pain Current Visit: Yes Status: Acute Qualifiers: Abdominal location: epigastric Qualified Code(s): R10.13 - Epigastric pain Assessment & Plan: EGD this morning. Somewhat better on IV protonix. Covering with IV zosyn in the event of partially treated diverticulitis - if no findings on EGD will repeat CT abd/pelvis. Code(s): R10.9 - UNSPECIFIED ABDOMINAL PAIN (3) Hypokalemia Current Visit: No Status: Acute Assessment & Plan: receiving K rider after K+ of 2.8 this morning. Add K+ to fluids. Should improve with advancing her diet. Code(s): E87.6 - HYPOKALEMIA (4) Nausea Current Visit: No Status: Acute Assessment & Plan: persistent. Code(s): R11.0 - NAUSEA
[2017-06-15] MEDS: Sodium Chloride 0.9% W/ 20 mEq KCl/LITER 1,000 ML IV SCH (13:08)
[2017-06-15 16:56] LABS: MAGNESIUM 1.6 mg/dL (1.8-2.4); Potassium 4.2 mEq/L (3.5-5.1)
[2017-06-15] MEDS ORDERED: Lactated Ringers 1,000 ML IV SCH (19:00)
[2017-06-15] MEDS: Protonix 40MG Tablet PO SCH (23:12)
[2017-06-15] MEDS: Carafate 1 GM PO SCH (23:12)
[2017-06-16] MEDS: Sodium Chloride 0.9% W/ 20 mEq KCl/LITER 1,000 ML IV SCH ×2 (02:09→14:23)
[2017-06-16] MEDS: Zosyn 3.375GM/100 Ml D5W 3.375 GM/100 ML IVPB IV SCH ×3 (06:40→17:52)
[2017-06-16] MEDS: NORVASC 5 MG PO SCH (08:45)
[2017-06-16] MEDS: Carafate 1 GM PO SCH ×4 (08:45→22:00)
[2017-06-16] MEDS: hydroDIURIL 25 MG PO SCH (08:45)
[2017-06-16] MEDS: SYNTHROID 75 MCG PO SCH (08:46)
[2017-06-16] MEDS: Toprol Xl 100 MG PO SCH (08:46)
[2017-06-16] MEDS: Benicar 20 MG PO SCH (08:46)
[2017-06-16] MEDS: Protonix 40MG Tablet PO SCH ×2 (08:49→22:00)
[2017-06-16 14:15] LABS: ANION GAP 9.7 MEQ/L (5-15); BLOOD UREA NITROGEN 7 mg/dL (9-20); CHLORIDE 98 mEq/L (98-107); Calcium 8.7 mg/dL (8.5-10.1); Carbon Dioxide 27.8 mEq/L (21-32); Creatinine 1 0.86 mg/dl (0.55-1.30); EST GLOMERULAR FILTRATION RATE > 60 ML/MIN; Glucose 151 MG/DL (70-110); Potassium 3.3 mEq/L (3.5-5.1); SODIUM 132 mEq/L (136-145)
[2017-06-16 14:19] LABS: Hematocrit 36.3 % (35-47); Mean Cell Volume 90.5 fl (78-100); Mean Corpuscular Hemoglobin 29.9 pg (26-32); Mean Corpuscular Hgb Concent. 33.1 g/dl (32-36); Mean Platelet Volume 9.1 fl (6-9.5); Platelet Count 454 K/mm3 (150-450); Red Blood Count 4.01 M/mm3 (4.1-5.4); Red Cell Distribution Width 14.3 % (11.5-14.0); White Blood Count 8.4 K/mm3 (4.0-10.5)
[2017-06-16] MEDS ORDERED: NORVASC 5 MG PO SCH (15:19)
--- NOTE | 2017-06-16 15:19 | PCM.NOTE ---
Date and Time: 06/16/17 1513 Subjective Assessment: EGD yesterday showed a large ulcer, per pt (surgery note not available yet). Dr. Betancur started her on carafate. He wants to check it again in 6-8 wks. Today she is having some sharp burning pain that is fleeting in the epigastrum. Nausea is gone! Has had 4 episodes of diarrhea today. - Review of Systems Constitutional: No Fever Abdominal/Gastrointestinal: Abdominal Pain Objective Exam General Appearance: no apparent distress, alert Neurologic Exam: oriented x 3, cooperative Skin Exam: normal color, warm, dry, No rash Respiratory Exam: normal breath sounds, lungs clear, No crackles/rales, No rhonchi, No wheezing Cardiovascular Exam: regular rate/rhythm, normal heart sounds, murmur (I/ murmur as usual) Gastrointestinal/Abdomen Exam: soft, normal bowel sounds, tenderness (epigastrum ), No distention, No mass, No guarding, No rebound Extremity Exam: swelling (gen non pitting edema le bilat) OBJECTIVE DATA Vital Signs: Vital Signs - 24 hr Temp Pulse Resp BP Pulse Ox 06/16/17 12:00 97.8 F 63 20 135/65 93 L 06/16/17 08:00 97.6 F 68 20 152/71 94 L 06/15/17 23:05 97.7 F 69 18 160/69 94 L 06/15/17 22:05 98.0 F 65 18 136/65 91 L 06/15/17 21:05 97.9 F 66 20 152/69 95 06/15/17 20:35 98.0 F 65 18 141/66 93 L 06/15/17 20:05 98.2 F 64 16 182/80 96 06/15/17 20:00 98.3 F 72 19 178/78 95 06/15/17 19:50 98.3 F 72 19 178/78 95 06/15/17 18:34 97.8 F 78 20 146/70 95 06/15/17 16:06 97.8 F 78 20 146/70 95 Pain Assessment - Last Documented Pain Intensity 0 Pain Scale Used 0-10 Pain Scale Intake and Output: Intake & Output 06/14/17 06/15/17 06/16/17 06/17/17 11:59 11:59 11:59 11:59 Intake Total 3117 460 480 Output Total 1300 1950 500 Balance 1817 -1490 -20 Weight 101.9 kg 101.9 kg Lab Results: Lab Results-Last 24 Hours 06/15/17 06/16/17 06/16/17 Range/Units 14:15 12:49 13:20 WBC 8.4 (4.0-10.5) K/mm3 RBC 4.01 L (4.1-5.4) M/mm3 Hgb 12.0 (12.0-16.0) gm/dl Hct 36.3 (35-47) % MCV 90.5 (78-100) fl MCH 29.9 (26-32) pg MCHC 33.1 (32-36) g/dl RDW 14.3 H (11.5-14.0) % Plt Count 454 H (150-450) K/mm3 MPV 9.1 (6-9.5) fl Sodium 132 L (136-145) mEq/L Potassium 4.2 3.3 L (3.5-5.1) mEq/L Chloride 98 (98-107) mEq/L Carbon Dioxide 27.8 (21-32) mEq/L Anion Gap 9.7 (5-15) MEQ/L BUN 7 L (9-20) mg/dL Creatinine 0.86 (0.55-1.30) mg/dl Estimated GFR > 60 ML/MIN Glucose 151 H (70-110) MG/DL Calcium 8.7 (8.5-10.1) mg/dL Magnesium 1.6 L (1.8-2.4) mg/dL Multi-Disciplinary Progress Notes: Multi-Disciplinary Progress Notes 06/16/17 13:04 Case Management Note by Alisia Mccord DISCHARGE PLAN REVIEWED. IMPORTANT PAPERS FROM MED[employer]ARE EXPLAINED, SIGNED AND COPY TO PATIENT WITH ORIGINAL ON PAPER CHART. DENIES NEED FOR ANY DME/SERVICE ON D/C. NORMALLY LIVES AT HOME AND IS INDEPENDENT OF ALL ADL'S. DRIVES AND IS CONSISTENT TRANSPORTATION. WILL CONTINUE TO MONITOR FOR ANY D/C NEEDS. Initialized on 06/16/17 13:04 - END OF NOTE Assessment/Plan (1) Diverticulitis Current Visit: No Status: Acute Assessment & Plan: Stay on zosyn here. Improved. Code(s): K57.92 - DVTRCLI OF INTEST, PART UNSP, W/O PERF OR ABSCESS W/O BLEED (2) Peptic ulcer disease Current Visit: Yes Status: Acute Assessment & Plan: On carafate and 40mg po BID PPI. [place] diet. Code(s): K27.9 - PEPTIC ULC, SITE UNSP, UNSP AC OR CHR, W/O HEMOR OR PERF (3) Renal insufficiency Current Visit: Yes Status: Resolved (4) Hypokalemia Current Visit: No Status: Resolved Assessment & Plan: started po potassium Code(s): E87.6 - HYPOKALEMIA (5) Nausea Current Visit: No Status: Resolved Code(s): R11.0 - NAUSEA (6) Failure of outpatient treatment Current Visit: No Status: Acute Code(s): Z78.9 - OTHER SPECIFIED HEALTH STATUS (7) Hypertension Current Visit: Yes Status: Acute Qualifiers: Hypertension type: essential hypertension Qualified Code(s): I10 - Essential (primary) hypertension Assessment & Plan: increase amlodipine from 2.5mg po daily to 5mg po daily. Code(s): I10 - ESSENTIAL (PRIMARY) HYPERTENSION
[2017-06-17] MEDS: Zosyn 3.375GM/100 Ml D5W 3.375 GM/100 ML IVPB IV SCH (00:57)
[2017-06-17] MEDS: Sodium Chloride 0.9% W/ 20 mEq KCl/LITER 1,000 ML IV SCH (00:57)
[2017-06-17 06:52] LABS: ANION GAP 10.5 MEQ/L (5-15); BLOOD UREA NITROGEN 4 mg/dL (9-20); CHLORIDE 102 mEq/L (98-107); Calcium 8.8 mg/dL (8.5-10.1); Carbon Dioxide 26.1 mEq/L (21-32); Creatinine 1 0.78 mg/dl (0.55-1.30); EST GLOMERULAR FILTRATION RATE > 60 ML/MIN; Glucose 104 MG/DL (70-110); MAGNESIUM 1.7 mg/dL (1.8-2.4); Potassium 3.6 mEq/L (3.5-5.1); SODIUM 135 mEq/L (136-145)
[2017-06-17 07:02] VITALS: BP 166/74; PULSE 81; O2SAT 98
[2017-06-17] MEDS: Carafate 1 GM PO SCH (07:43)
--- NOTE | 2017-06-17 08:44 | PCM.DS ---
Discharge Summary Date of Admission: 06/14/17 15:20 Admitting Physician: GRACIE WALLIS Consults: Consults on Case 06/14/17 15:53 Consult Surgery ROUTINE Primary Care Provider: GRACIE WALLIS Allergies Allergies No Known Drug Allergies Allergy (Verified 06/04/17 11:36) Hospital Summary - Hospital Course Hospital Course: She is denying nausea or abdominal pain this morning. Keyur po well although she notes food does not have much taste. - Vitals & Intake/Output Vital Signs: Vital Signs Temperature 98.1 F 06/17/17 07:01 Pulse Rate 81 06/17/17 07:01 Respiratory Rate 20 06/17/17 07:01 Blood Pressure 166/74 06/17/17 07:01 O2 Sat by Pulse Oximetry 98 06/17/17 07:01 Intake & Output: Intake & Output 06/14/17 06/15/17 06/16/17 06/17/17 11:59 11:59 11:59 11:59 Intake Total 3117 460 4408 Output Total 1300 1950 3750 Balance 1817 -1490 658 Weight 101.9 kg 101.9 kg - Lab Result Diagrams: 06/16/17 13:20 06/17/17 05:25 Lab Results-Last 24 Hrs: Lab Results-Last 24 Hours 06/16/17 06/16/17 06/17/17 Range/Units 12:49 13:20 05:25 WBC 8.4 (4.0-10.5) K/mm3 RBC 4.01 L (4.1-5.4) M/mm3 Hgb 12.0 (12.0-16.0) gm/dl Hct 36.3 (35-47) % MCV 90.5 (78-100) fl MCH 29.9 (26-32) pg MCHC 33.1 (32-36) g/dl RDW 14.3 H (11.5-14.0) % Plt Count 454 H (150-450) K/mm3 MPV 9.1 (6-9.5) fl Sodium 132 L 135 L (136-145) mEq/L Potassium 3.3 L 3.6 (3.5-5.1) mEq/L Chloride 98 102 (98-107) mEq/L Carbon Dioxide 27.8 26.1 (21-32) mEq/L Anion Gap 9.7 10.5 (5-15) MEQ/L BUN 7 L 4 L (9-20) mg/dL Creatinine 0.86 0.78 (0.55-1.30) mg/dl Estimated GFR > 60 > 60 ML/MIN Glucose 151 H 104 (70-110) MG/DL Calcium 8.7 8.8 (8.5-10.1) mg/dL Magnesium 1.7 L (1.8-2.4) mg/dL - Procedures and Test Procedures and Tests throughout Hospitalization: Therapy Orders & Screens 06/14/17 16:49 ST Screen per Nursing Assess once Comment: Protocol Order Physician Instructions: Greater than [address] Admission Screening Reason For Exam: Triggered on Admission Diagnosis: DEHYDRATION CVA/Dyshpagia/Aphasia: No Cognitive Deficits: No Dehydration/Nutrition Deficit: Yes Reflux: Yes Oral-Motor Difficulties: No Pneumonia: No Long-Term Resident: No Total Points: 8 Discharge Exam General Appearance: no apparent distress, alert Neurologic Exam: oriented x 3, cooperative Skin Exam: normal color, warm, dry, No rash Respiratory Exam: normal breath sounds, lungs clear, No crackles/rales, No rhonchi, No wheezing Cardiovascular Exam: regular rate/rhythm, normal heart sounds, murmur (II/ sys murmur as usual) Gastrointestinal/Abdomen Exam: soft, normal bowel sounds, No tenderness, No distention, No mass, No guarding, No rebound Final Diagnosis/Problem List - Final Discharge Diagnosis/Problem (1) Diverticulitis Current Visit: No Status: Acute Assessment & Plan: Home on augmentin. I think with her PUD addressed she will recover quickly at this point. (2) Peptic ulcer disease Current Visit: Yes Status: Acute Assessment & Plan: Home on carafate and PPI, f/u with Dr. Betancur in 6 wks as directed. (3) Renal insufficiency Current Visit: Yes Status: Resolved (4) Hypokalemia Current Visit: No Status: Resolved (5) Nausea Current Visit: No Status: Resolved (6) Failure of outpatient treatment Current Visit: No Status: Acute (7) Hypertension Current Visit: Yes Status: Acute Assessment & Plan: increased norvasc from 2.5mg po daily to 5mg daily - Discharge Disposition: Home, Self-Care Condition: Good Prescriptions: New Amoxicillin/Potassium Clav [Augmentin 875-125 Tablet] 875 mg PO BID #10 tablet Sucralfate 1 gm [Carafate 1 GM] 1 g PO ACHS #120 tablet Magnesium Oxide 400 mg [Mag-Ox 400] 400 mg PO DAILY #30 tablet Amlodipine Besylate 5 mg [Norvasc 5 mg] 5 mg PO DAILY #30 tablet PANTOPRAZOLE 40 mg Tablet [Protonix 40MG Tablet] 40 mg PO BID #60 tab Continue Multivitamin [Multivitamins] 1 tab PO DAILY Metoprolol Succinate 100 mg [Toprol Xl 100 MG] 100 mg PO DAILY Olmesartan/Hydrochlorothiazide [Benicar Hct 40-25 mg Tablet] 1 each PO DAILY Levothyroxine Sodium 75 Mcg [Synthroid 75 Mcg] 75 mcg PO DAILY Aspirin [Aspirin EC] 325 mg PO DAILY Cholecalciferol (Vitamin D3) [Vitamin D] 2 cap PO DAILY Pitavastatin Calcium [Livalo] 1 mg PO BID Albuterol Sulfate [Proair Hfa] 8.5 gm IH UD Dicyclomine HCl 10 mg PO TIDPRN PRN PRN Reason: Pain Ondansetron ODT 4 MG [Zofran Odt 4 mg] 1 tab PO Q4HPRN PRN PRN Reason: Nausea/Vomiting Multivitamin [Multi-Vitamin Daily] 1 each PO DAILY Tramadol HCl 50 mg [Ultram 50 mg] 50 mg PO Q6HPRN PRN PRN Reason: Pain Discontinued Amlodipine Besylate [Norvasc] 2.5 mg PO DAILY Simethicone 125 mg PO QID Omeprazole [Prilosec] 40 mg PO DAILY Follow up with: GRACIE WALLIS [Primary Care Provider] - 1 Week
--- NOTE | 2017-06-17 08:47 | OP ---
SURGERY DATE/TIME: 06/15/2017 190 PREOPERATIVE DIAGNOSIS: Nausea and vomiting. POSTOPERATIVE DIAGNOSIS: Major deep prepyloric posterior wall ulcer grossly benign. PROCEDURE: EGD with biopsy for CLOtest. SURGEON: Jason Betancur M.D. ANESTHESIA: MAC by Bryan Ruvalcaba CRNA. COMPLICATIONS: None. CONDITION: Stable. FINDINGS: Large gastric ulcer. INDICATION: The patient has nausea and vomiting. She does have history of diverticulosis. She had been treated for diverticulosis but now she is having nausea and vomiting. DESCRIPTION OF PROCEDURE: She was taken to endoscopy. Left lateral decubitus position. MAC sedation provided. The scope was introduced. The esophagus is normal down to gastroesophageal junction. The gastroesophageal junction satisfactory. The fundus and body satisfactory. Distal antrum, prepyloric on the posterior right upper corner was a burrowing ulcer that was nearly 2 cm deep and about 1 cm wide. It had totally uniform edges. It had no suggestion of malignancy. Duodenal bulb was satisfactory. Second portion satisfactory. Scope withdrawn. Station Tender biopsies for JOLLY. Scope withdrawn. IMPRESSION: Large gastric ulcer certainly explains her symptoms. She will require aggressive treatment with Carafate and Protonix for six to eight weeks and she will require rescope in six to eight weeks to insure healing occurs.
[2017-06-17] MEDS: Benicar 20 MG PO SCH (09:20)
[2017-06-17] MEDS: Toprol Xl 100 MG PO SCH (09:21)
[2017-06-17] MEDS: Protonix 40MG Tablet PO SCH (09:21)
[2017-06-17] MEDS: SYNTHROID 75 MCG PO SCH (09:21)
[2017-06-17] MEDS: hydroDIURIL 25 MG PO SCH (09:21)
[2017-06-17] MEDS ORDERED: Klor Con 10 MEQ PO SCH (10:00)
[2017-06-17] MEDS ORDERED: MAG-OX 400 PO SCH (10:00)
[2017-06-17 11:01] LABS: 027 TOX PROD PRESUMPTIVE NEGATIVE (NEGATIVE); TOXIGENIC C. DIFF ORG NEGATIVE (NEGATIVE)
== END 2017-06-17 10:20 | disposition home or self-care (01) | DRG 392 ==
LOC: MED SURG 15:20 → OBSVTOIN 15:20
PROVIDERS: ADMIT Family Medicine; ATTEND Family Medicine
PROC: 0DB78ZX Excision of Stomach, Pylorus, Via Natural or Artificial Opening Endoscopic, Diagnostic (ICD-10-PCS; principal; 2017-06-15)
PROC: 0DB78ZX Excision of Stomach, Pylorus, Via Natural or Artificial Opening Endoscopic, Diagnostic (ICD-10-PCS; 2017-06-15)
DX: K57.92 Diverticulitis of intestine, part unspecified, without perforation or abscess without bleeding (principal); K27.9 Peptic ulcer, site unspecified, unspecified as acute or chronic, without hemorrhage or perforation; N28.9 Disorder of kidney and ureter, unspecified; E87.6 Hypokalemia; Z78.9 Other specified health status; I10 Essential (primary) hypertension; E03.9 Hypothyroidism, unspecified; E78.5 Hyperlipidemia, unspecified; K21.9 Gastro-esophageal reflux disease without esophagitis; M79.7 Fibromyalgia; Z79.899 Other long term (current) drug therapy; K25.9 Gastric ulcer, unspecified as acute or chronic, without hemorrhage or perforation
CPT/HCPCS: 00731; 36415; 80048; 82150; 83605; 83690; 83735; 84132; 85027; 87081; 87493; 99100; J2405; J2543; J2704; J3480; A9270-GY

== ENCOUNTER 2017-09-26 08:05 | Day surgery (SDC) | payer MEDICARE ==
--- NOTE | 2017-09-25 09:49 | HP ---
DATE OF SURGERY: 09/26/2017 ANTICIPATED PROCEDURE: EGD. HISTORY OF PRESENT ILLNESS: The patient has some dysphagia and upper abdominal discomfort, difficulty swallowing, presents for EGD. PAST MEDICAL HISTORY: ALLERGIES: NONE. MEDICATIONS: Multiple. PAST SURGICAL HISTORY: None recent. SOCIAL HISTORY: Negative. FAMILY HISTORY: Negative. REVIEW OF SYSTEMS: Hypertension, cholesterol, stroke. PHYSICAL EXAMINATION: VITAL SIGNS: Normal. CHEST: Clear. COR: Regular. ABDOMEN: No palpable organomegaly or mass. IMPRESSION: Dysphagia. PLAN: EGD.
[~2017-09-26 08:05] MED LIST: Lactated Ringers 1,000 ML IV SCH
[2017-09-26] MEDS ORDERED: DIPRIVAN 200 MG/20 ML IV ONE (08:06)
[2017-09-26] MEDS ORDERED: Lactated Ringers 1,000 ML IV ONE (08:18)
[2017-09-26 11:11] VITALS: O2SAT 97
[2017-09-26 11:22] VITALS: BP 146/88; PULSE 59
--- NOTE | 2017-09-26 12:27 | OP ---
SURGERY DATE/TIME: 09/26/2017 1014 PREOPERATIVE DIAGNOSIS: Dysphagia, history of ulcer. POSTOPERATIVE DIAGNOSIS: Normal examination except for 2 inch hiatal hernia, grade II/III gastroesophageal reflux disease and Candidiasis of duodenum. PROCEDURE: EGD with biopsy for JOLLY-test. SURGEON: Jason Betancur M.D. 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 ANESTHESIA: MAC. COMPLICATIONS: None. CONDITION: Stable. INDICATION: The patient has upper GI symptoms, dysphagia, epigastric pain and history of ulcers. DESCRIPTION OF PROCEDURE: Taken to endoscopy. Left lateral decubitus position. MAC sedation provided. Good anesthesia level was present. The scope introduced. The esophageal junction was normal. Esophagus normal down to gastroesophageal junction. There was a rim of esophagitis grade I. There was a 2 inch hiatal hernia. Fundus, body and antrum was normal. Pylorus normal. Duodenal bulb normal. Second portion normal. Ampullary area normal. Scope withdrawn looped upon itself. A 2 inch hiatal hernia. The scope withdrawn. Of additional comment, even though the mucosa was normal there was Candidiasis of the second portion of the duodenum. The patient was given a prescription for Diflucan and she will return to the office PRN.
== END 2017-09-26 11:34 | disposition home or self-care (01) ==
LOC: SDC 08:05
PROVIDERS: ATTEND Surgery
DX: R13.10 Dysphagia, unspecified (principal); Z87.11 Personal history of peptic ulcer disease; K21.9 Gastro-esophageal reflux disease without esophagitis; K44.9 Diaphragmatic hernia without obstruction or gangrene; B37.89 Other sites of candidiasis; I10 Essential (primary) hypertension
CPT/HCPCS: 87081; 99100; J2704

== ENCOUNTER 2018-03-11 11:47 | Observation (INO) | payer MEDICARE ==
[2018-03-11] MEDS ORDERED: MORPHINE SULFATE 4 MG INJ IV PRN (12:07)
[2018-03-11] MEDS ORDERED: Zofran 4 MG/2 ML VIAL IV PRN (12:08)
[2018-03-11] MEDS ORDERED: Lactated Ringers 500 ML IV SCH (12:30)
[2018-03-11 12:52] LABS: ALBUMIN 4.3 g/dL (3.5-5.0); ALKALINE PHOSPHATASE 95 U/L (38-126); AMYLASE 73 U/L (30-110); ANION GAP 14.6 MEQ/L (5-15); BLOOD UREA NITROGEN 22 mg/dL (7-17); CHLORIDE 89 mmol/L (98-107); Calcium 9.8 mg/dL (8.4-10.2); Carbon Dioxide 27 mmol/L (22-30); Creatinine 1 1.29 mg/dL (0.52-1.04); Glucose 115 mg/dL (74-106); LIPASE 78 U/L (23-300); Potassium 3.6 mmol/L (3.5-5.1); SGOT/AST 20 U/L (14-36); SGPT/ALT 14 U/L (0-35); SODIUM 126 mmol/L (137-145); Total Protein 6.8 g/dL (6.3-8.2)
[2018-03-11 12:59] LABS: TROPONIN < 0.012 ng/mL (0.000-0.034)
[2018-03-11] MEDS ORDERED: Lactated Ringers 1,000 ML IV SCH (13:30)
[2018-03-11] MEDS: PROTONIX 40 MG IV IV SCH (13:33)
--- NOTE | 2018-03-11 13:54 | XRAY ---
Exam: Acute abdominal series from 03/11/2018. Comparison: Acute abdominal series from 06/04/2017. Indication: 72-year-old female with abdominal pain and fatigue. Findings: Upright PA chest film reveals a normal heart size. A calcified mildly tortuous thoracic aorta is seen. The remainder of the nataliia and mediastinal structures appear unremarkable. There is mild right paratracheal soft tissue density which I believe represents some ectasia of the vessels within this projection of the superior mediastinum. The lungs are well inflated. There appear clear. Pulmonary vascularity is normal. No pneumothorax or pleural effusion is seen. A small orthopedic fastener device is seen overlying the right humeral head from prior surgery. Correlate with surgical history. 2 supine images and an upright image of the abdomen were obtained. The bowel gas pattern appears nonspecific. Some minimal air-fluid levels are seen across the upper abdomen. Bowel gas is seen distal to this. Some scattered stool is seen throughout the colon. No free intraperitoneal air is seen. Surgical clips consistent with prior cholecystectomy are seen within the right upper quadrant. No hepatosplenomegaly is seen. No suspicious abdominal calcifications are noted. There is slight convexity of the upper lumbar spine toward the left centered at the superior vertebral endplate of L2 on the upright abdomen image. In addition, I note marked degenerative disc disease and degenerative joint disease at L4-L5 representing no change. No other acute osseous process is seen. Impression: 1. No acute cardiopulmonary disease is seen 2. Nonspecific, nonobstructed bowel gas pattern, as discussed above. A few nonspecific air-fluid levels are seen across the upper abdomen in the midline and to the left of midline. No free intraperitoneal air is seen. 3. Status post cholecystectomy. 4. Marked degenerative disc disease and degenerative joint disease is again seen at L4-L5. There is also slight convexity of the upper lumbar spine toward the left on the upright image.
[2018-03-11 14:16] LABS: Appearance CLOUDY (CLEAR); Bilirubin NEGATIVE (NEGATIVE); Blood NEGATIVE Ery/ul (0-5); Glucose NEGATIVE (NEGATIVE); Ketones TRACE (NEGATIVE); Leukocyte Esterase SMALL (NEGATIVE); Nitrite NEGATIVE (NEGATIVE); Protein,Urine Dip 30 (Negative); Specific Gravity 1.013 (1.005-1.025); Urobilinogen 2 mg/dL (0-1)
[2018-03-11 14:24] LABS: BASOPHIL % 0.3 % (0.0-0.4); Basophil (Absolute #) 0.03 (0-0.4); Eosinophil % 0.9 % (0.00-5.0); Granulocyte Absolute (ANC) 6.83 (1.4-6.9); Granulocytes % 62.8 % (36.0-66.0); Hematocrit 43.6 % (35-47); Lymphocyte (Absolute #) 3.08 (1.0-4.6); Lymphocytes % 28.4 % (24.0-44.0); Mean Cell Volume 88.8 fl (78-100); Mean Corpuscular Hemoglobin 30.5 pg (26-32); Mean Corpuscular Hgb Concent. 34.4 g/dl (32-36); Mean Platelet Volume 8.9 fl (6-9.5); Monocyte (Absolute #) 0.82 (0.0-1.3); Monocytes % 7.6 % (0.0-12.0); Platelet Count 459 K/mm3 (150-450); Red Blood Count 4.91 M/mm3 (4.1-5.4); Red Cell Distribution Width 13.7 % (11.5-14.0); White Blood Count 10.9 K/mm3 (4.0-10.5)
--- NOTE | 2018-03-11 16:40 | XRAY ---
Exam: CT of the abdomen and pelvis without IV contrast from 03/11/2018. CTDI: 23.46 Comparison: CT of the abdomen and pelvis without IV contrast from 07/12/2016. Indication: 72-year-old female with history of abdominal pain, fatigue. The patient gives a history of prior cholecystectomy. Technique: Non-IV contrast axial images were obtained through the abdomen and pelvis. No IV contrast was given because of the patient's estimated GFR of 43.3. Oral contrast was given. Reconstructed coronal and sagittal images were created and reviewed. Findings: The visualized lung bases are remarkable for a small calcified granuloma within the medial aspect of the right lower lobe. A 3.5 mm x 4.4 mm noncalcified nodule is seen at the posterior lateral aspect of the right lung base. See axial image #4. I believe this is unchanged from axial image #4 on 07/12/2016. This is encouraging that this is probably nonaggressive, although stability over a two-year period of time is needed to state this with a high degree of confidence. I again see a small hiatal hernia. Assessment of the solid organs is limited without the use of IV contrast. I see no definite abnormality of the liver. Surgical clips consistent with prior cholecystectomy are seen within the right upper quadrant. No definite intrahepatic biliary duct distention is seen. The spleen is relatively small and is remarkable for a small calcified granuloma. The pancreas, adrenal glands, and kidneys appear unremarkable. No renal calculi or hydronephrosis is seen. Atherosclerotic vascular calcification is seen within the abdominal aorta and iliac arteries. No abdominal aortic aneurysm or abnormal retroperitoneal lymphadenopathy is seen. I again see a small fat-containing umbilical hernia representing no change. The remainder of the anterior abdominal wall appears intact. No free intraperitoneal air is seen. The bowel appears of unremarkable diameter and wall thickness. Moderate to marked distal descending and sigmoid colon diverticulosis without evidence of diverticulitis is again seen. The appendix is not visualized within the right lower quadrant. No acute inflammatory process is seen within the right lower quadrant. The uterus is surgically absent. No free intraperitoneal fluid is seen. No enlarged pelvic lymph nodes are seen. The urinary bladder is partially distended and appears grossly unremarkable. I again see a grade 1 anterior spondylolisthesis of L4 over L5 without evidence of spondylolysis. This is unchanged. There is marked degenerative disc disease at L4-L5. I also see mild facet joint arthropathy at the lower 3 lumbar interspaces, most pronounced at L4-L5 and L5-S1. These findings are unchanged. There is slight loss of anterior vertebral body height of T11 with a small Schmorl's node within the central aspect of the superior vertebral endplate of T11. This appears about the same. Impression: 1. Stable small noncalcified nodule within the right lower lobe as compared to 07/12/2016. 2. Small hiatal hernia and minimal fat-containing umbilical hernia are again seen. 3. There is evidence of prior cholecystectomy and hysterectomy. I do not see the appendix, and the patient may have had prior appendectomy as well. 4. Moderate to marked diverticulosis without acute diverticulitis within the distal descending colon and throughout the sigmoid colon. 5. No other acute process is seen within the abdomen or pelvis.
[2018-03-11] MEDS: Sodium Chloride 0.9% 1000 ML 1,000 ML IV SCH (19:32)
[2018-03-11] MEDS: Ditropan 5 MG PO SCH (21:21)
[2018-03-12] MEDS: Sodium Chloride 0.9% 1000 ML 1,000 ML IV SCH ×3 (05:39→21:45)
--- NOTE | 2018-03-12 08:38 | PCM.NOTE ---
Date and Time: 03/12/18830 Subjective Assessment: Pt admitted yesterday from office with acute abdominal pain; hx PUD per pt report with 2 EGDs done within the past 1 year. Tolerated CLD last night. This morning is NPO for EGD later today with general surgery, thank you. Her pain is negligible this morning but she notes it's because she hasn't eaten. - Review of Systems Constitutional: No Fever Abdominal/Gastrointestinal: Abdominal Pain Objective Exam General Appearance: no apparent distress, alert Neurologic Exam: oriented x 3, cooperative Skin Exam: normal color, warm, dry, No rash Respiratory Exam: normal breath sounds, lungs clear, No crackles/rales, No rhonchi, No wheezing Cardiovascular Exam: regular rate/rhythm, normal heart sounds, murmur (II/ sys murmur) Gastrointestinal/Abdomen Exam: soft, normal bowel sounds, tenderness (epigastrum ) Extremity Exam: No pedal edema, No swelling OBJECTIVE DATA Vital Signs: Vital Signs - 24 hr Temp Pulse Resp BP Pulse Ox 03/12/18 08:21 162/84 03/12/18 07:23 98.1 F 66 20 172/74 95 03/12/18 04:10 97.1 F 68 20 131/86 95 03/11/18 23:36 98.1 F 82 16 118/58 95 03/11/18 18:50 97.8 F 69 18 135/69 97 03/11/18 16:00 98.1 F 51 L 18 127/62 97 03/11/18 13:50 98.4 F 53 L 18 145/67 98 03/11/18 12:00 98.4 F 53 L 18 145/67 98 Pain Assessment - Last Documented Pain Intensity 0 Pain Scale Used 0-10 Pain Scale Intake and Output: Intake & Output 03/09/18 03/10/18 03/11/18 03/12/18 11:59 11:59 11:59 11:59 Intake Total 3482 Output Total 600 Balance 2882 Weight 101.3 kg Lab Results: Lab Results-Last 24 Hours 03/11/18 03/11/18 03/11/18 Range/Units 12:03 12:06 14:15 WBC 10.9 H (4.0-10.5) K/mm3 RBC 4.91 (4.1-5.4) M/mm3 Hgb 15.0 (12.0-16.0) gm/dl Hct 43.6 (35-47) % MCV 88.8 (78-100) fl MCH 30.5 (26-32) pg MCHC 34.4 (32-36) g/dl RDW 13.7 (11.5-14.0) % Plt Count 459 H (150-450) K/mm3 MPV 8.9 (6-9.5) fl Gran % 62.8 (36.0-66.0) % Eos # (Auto) 0.10 (0-0.5) Absolute Lymphs (auto) 3.08 (1.0-4.6) Absolute Monos (auto) 0.82 (0.0-1.3) Lymphocytes % 28.4 (24.0-44.0) % Monocytes % 7.6 (0.0-12.0) % Eosinophils % 0.9 (0.00-5.0) % Basophils % 0.3 (0.0-0.4) % Absolute Granulocytes 6.83 (1.4-6.9) Basophils # 0.03 (0-0.4) Sodium 126 L (137-145) mmol/L Potassium 3.6 (3.5-5.1) mmol/L Chloride 89 L (98-107) mmol/L Carbon Dioxide 27 (22-30) mmol/L Anion Gap 14.6 (5-15) MEQ/L BUN 22 H (7-17) mg/dL Creatinine 1.29 H (0.52-1.04) mg/dL Estimated GFR 43.3 ML/MIN Glucose 115 H (74-106) mg/dL Calcium 9.8 (8.4-10.2) mg/dL Total Bilirubin 0.60 (0.2-1.3) mg/dL AST 20 (14-36) U/L ALT 14 (0-35) U/L Alkaline Phosphatase 95 (38-126) U/L Troponin I < 0.012 (0.000-0.034) ng/mL Serum Total Protein 6.8 (6.3-8.2) g/dL Albumin 4.3 (3.5-5.0) g/dL Amylase 73 (30-110) U/L Lipase 78 (23-300) U/L Urine Color HENRY (YELLOW) Urine Appearance CLOUDY (CLEAR) Urine pH 6.0 (5-6) Ur Specific [place] 1.013 (1.005-1.025) Urine Protein 30 (Negative) Urine Ketones TRACE (NEGATIVE) Urine Blood NEGATIVE (0-5) Ricky/ul Urine Nitrite NEGATIVE (NEGATIVE) Urine Bilirubin NEGATIVE (NEGATIVE) Urine Urobilinogen 2 (0-1) mg/dL Ur Leukocyte Esterase SMALL (NEGATIVE) Urine WBC (Auto) 16-25 (0-5) /HPF Urine RBC (Auto) 0-2 (0-2) /HPF U Hyaline Cast (Auto) 6-10 (0-2) /LPF U Epithel Cells (Auto) RARE (FEW) /HPF Urine Bacteria (Auto) MANY (NEGATIVE) /HPF Urine Mucus (Auto) SLIGHT (NEGATIVE) /HPF Urine Culture Reflexed YES (NO) Urine Glucose NEGATIVE (NEGATIVE) mg/dL Radiology Exams: Radiology Procedures Category Date Time Status ABDOMEN AND PELVIS W/0 CONTRAS [CT] Urgent Exams 03/11/18 12:30 Completed OBSTR/ACUTE ABDOMEN SERIES Stat Exams 03/11/18 12:07 Completed Assessment/Plan (1) Abdominal pain Current Visit: No Status: Acute Qualifiers: Abdominal location: epigastric Assessment & Plan: Concern for PUD. Doing ok now, as she is NPO. EGD to be done this afternoon. hx cholecystectomy. Code(s): R10.9 - UNSPECIFIED ABDOMINAL PAIN (2) Hypertension Current Visit: No Status: Acute Qualifiers: Hypertension type: essential hypertension Assessment & Plan: recheck latest BP manually was 160 systolic. All other BP have been wnl. Code(s): I10 - ESSENTIAL (PRIMARY) HYPERTENSION
[2018-03-12] MEDS: PROTONIX 40 MG IV IV SCH (09:17)
[2018-03-12] MEDS: Ditropan 5 MG PO SCH ×2 (09:18→20:44)
[2018-03-12] MEDS: Benicar 20 MG PO SCH (09:18)
[2018-03-12] MEDS: hydroDIURIL 25 MG PO SCH (09:19)
[2018-03-12] MEDS: SYNTHROID 75 MCG PO SCH (09:19)
[2018-03-12] MEDS: Toprol Xl 100 MG PO SCH (09:20)
[2018-03-12 09:30] LABS: BASOPHIL % 0.2 % (0.0-0.4); Basophil (Absolute #) 0.02 (0-0.4); Eosinophil % 2.3 % (0.00-5.0); Eosinophil (Absolute #) 0.19 (0-0.5); Granulocyte Absolute (ANC) 5.17 (1.4-6.9); Granulocytes % 62.6 % (36.0-66.0); Hematocrit 38.8 % (35-47); Hemoglobin 13.4 gm/dl (12.0-16.0); Lymphocyte (Absolute #) 2.13 (1.0-4.6); Lymphocytes % 25.8 % (24.0-44.0); Mean Cell Volume 88.8 fl (78-100); Mean Corpuscular Hemoglobin 30.7 pg (26-32); Mean Corpuscular Hgb Concent. 34.5 g/dl (32-36); Mean Platelet Volume 8.9 fl (6-9.5); Monocyte (Absolute #) 0.75 (0.0-1.3); Monocytes % 9.1 % (0.0-12.0); Platelet Count 405 K/mm3 (150-450); Red Blood Count 4.37 M/mm3 (4.1-5.4); Red Cell Distribution Width 13.7 % (11.5-14.0); White Blood Count 8.3 K/mm3 (4.0-10.5)
[2018-03-12] MEDS ORDERED: HYDROCHLOROTHIAZIDE PO SCH (10:00)
[2018-03-12] MEDS ORDERED: OLMESARTAN PO SCH (10:00)
[2018-03-12] MEDS ORDERED: [UNRECOGNIZED DRUG - OTHER] PO SCH (10:00)
[2018-03-12 10:06] LABS: ANION GAP 9.7 MEQ/L (5-15); BLOOD UREA NITROGEN 12 mg/dL (7-17); CHLORIDE 98 mmol/L (98-107); Calcium 8.9 mg/dL (8.4-10.2); Carbon Dioxide 26 mmol/L (22-30); Creatinine 1 0.77 mg/dL (0.52-1.04); Glucose 100 mg/dL (74-106); Potassium 3.6 mmol/L (3.5-5.1); SODIUM 131 mmol/L (137-145)
[2018-03-12] MEDS ORDERED: Tussionex Pennkinetic Susp PO PRN (20:35)
[2018-03-13 05:45] VITALS: O2SAT 96
[2018-03-13] MEDS ORDERED: Tussionex Pennkinetic Susp PO PRN (06:45)
[2018-03-13 07:14] VITALS: BP 147/72; PULSE 67
--- NOTE | 2018-03-13 08:08 | CONS ---
CONSULT DATE: 03/12/2018 HISTORY: The patient is a 72 year-old a little overweight female with past history of prepyloric gastric ulcer, hiatal hernia in the past, had some Johanna in the past. Well known to Dr. Betancur who did endoscopy in May and then back in September or October. She had some cough, had some epigastric pain and was having some trouble eating. She was admitted. However she was not NPO yesterday to proceed so she was added for procedure today. PAST MEDICAL HISTORY: Obesity, chronic obstructive pulmonary disease, hypertension, hypothyroidism, hyperlipidemia. History of fibromyalgia in the past as well as ulcer disease and gastritis. PAST SURGICAL HISTORY: Appendectomy, hysterectomy. She had upper endoscopy by Dr. Betancur several times. She had her gallbladder out in the past too by Dr. Betancur. ALLERGIES: STATINS, HMG, COA REDUCTASE INHIBITOR. FAMILY HISTORY: Renal cancer. SOCIAL HISTORY: No smoking. REVIEW OF SYSTEMS: Twelve systems reviewed as noted above. Negative or noncontributory as above and per preadmission questionnaire. PHYSICAL EXAMINATION: A chronically ill female. GENERAL: No acute distress. HEENT: Sclera nonicteric. NECK: No JVD. CHEST: Equal excursion, nonlabored breathing. ABDOMEN: Soft. EXTREMITIES: No edema. No cyanosis. NEURO: Alert, moving extremities grossly symmetrically. IMPRESSION: Some epigastric pain, some dysphagia. I feel she will benefit from upper endoscopy. She had CT scan that did not show any obvious acute changes. She had a white blood cell count with hemoglobin 13.4, PLT 405,000. It was felt she would benefit from upper endoscopy for evaluation. General risk of bleeding or infection, risk of bowel injury or perforation, risk of missed or nondiagnosis or inability to diagnose the etiology of her symptoms possibly requiring other work up and/or testing or studies or other procedures. Including the overall risk of bleeding, infection, risk of bowel injury or perforation possibly requiring open procedure, ongoing morbidity but not limited to possibility of inability to improve her symptoms. She understands and agrees to the planned procedure. Consent was obtained. Will proceed with EGD possible biopsy possible dilatation pending operative findings.
--- NOTE | 2018-03-13 08:19 | PCM.DS ---
Discharge Summary Date of Admission: 03/11/18 11:47 Admitting Physician: GRACIE WALLIS Consults: Consults on Case 03/11/18 16:44 Consult Surgery ROUTINE Primary Care Provider: GRACIE WALLIS Allergies Allergies [id number] Reductase Inhibitor Allergy (Mild, Verified 09/26/17 08:24) leg aches Hospital Summary - Hospital Course Hospital Course: Pt is a 72 yo female pt of mine from [facility] with HTN and hx PUD who was admitted from office 2 d ago with increased abd pain with eating. She had an EGD yesterday afternoon that per pt and RN report (surgical note not yet available) revealed esophageal stricture (which was dilated) and persistent peptic ulcer disease, as well as hiatal hernia. The pt had a huge coughing fit last night productive of sputum, but this morning is feeling much better. Tolerated liquids last night and is tolerating a bland diet today. Would like to go home. Her BP was elevated into the 180s systolic twice during her stay and into the 160s systolic intermittently for the past 2 days. Adding amlodipine 5mg today. Will send pt home on carafate 1g po QID x 7d and 40mg PPI x 2 weeks, followed by 20mg PPI daily for maintenence. She will f/u with Dr. Rosado in 1 week and with me in 2 weeks. - Vitals & Intake/Output Vital Signs: Vital Signs Temperature 97.8 F 03/13/18 07:13 Pulse Rate 67 03/13/18 07:13 Respiratory Rate 20 03/13/18 07:13 Blood Pressure 147/72 03/13/18 07:13 O2 Sat by Pulse Oximetry 96 03/13/18 07:13 Intake & Output: Intake & Output 03/10/18 03/11/18 03/12/18 03/13/18 11:59 11:59 11:59 11:59 Intake Total 3482 1449 Output Total 600 3200 Balance 2882 -1751 Weight 101.3 kg 101.3 kg - Lab Result Diagrams: 03/12/18 08:10 03/12/18 09:20 Lab Results-Last 24 Hrs: Lab Results-Last 24 Hours 03/12/18 03/12/18 Range/Units 08:10 09:20 WBC 8.3 (4.0-10.5) K/mm3 RBC 4.37 (4.1-5.4) M/mm3 Hgb 13.4 (12.0-16.0) gm/dl Hct 38.8 (35-47) % MCV 88.8 (78-100) fl MCH 30.7 (26-32) pg MCHC 34.5 (32-36) g/dl RDW 13.7 (11.5-14.0) % Plt Count 405 (150-450) K/mm3 MPV 8.9 (6-9.5) fl Gran % 62.6 (36.0-66.0) % Eos # (Auto) 0.19 (0-0.5) Absolute Lymphs (auto) 2.13 (1.0-4.6) Absolute Monos (auto) 0.75 (0.0-1.3) Lymphocytes % 25.8 (24.0-44.0) % Monocytes % 9.1 (0.0-12.0) % Eosinophils % 2.3 (0.00-5.0) % Basophils % 0.2 (0.0-0.4) % Absolute Granulocytes 5.17 (1.4-6.9) Basophils # 0.02 (0-0.4) Sodium 131 L (137-145) mmol/L Potassium 3.6 (3.5-5.1) mmol/L Chloride 98 (98-107) mmol/L Carbon Dioxide 26 (22-30) mmol/L Anion Gap 9.7 (5-15) MEQ/L BUN 12 (7-17) mg/dL Creatinine 0.77 (0.52-1.04) mg/dL Estimated GFR > 60.0 ML/MIN Glucose 100 (74-106) mg/dL Calcium 8.9 (8.4-10.2) mg/dL Micro Results-Entire Visit: Microbiology 03/11/18 12:06 Urine Culture - Final Urine, Void Aerococcus Viridans - Radiology Exams Ordered Rad Exams-Entire Visit: Radiology Procedures Category Date Time Status ABDOMEN AND PELVIS W/0 CONTRAS [CT] Urgent Exams 03/11/18 12:30 Completed OBSTR/ACUTE ABDOMEN SERIES Stat Exams 03/11/18 12:07 Completed - Procedures and Test Procedures and Tests throughout Hospitalization: Therapy Orders & Screens 03/11/18 12:02 EKG STAT Comment: Diagnosis: Abdominal pain, fatigue Discharge Exam General Appearance: no apparent distress, alert, obese Neurologic Exam: oriented x 3, cooperative Skin Exam: normal color, warm, dry, No rash Ears, Nose, Throat Exam: moist mucous membranes Neck Exam: normal inspection Respiratory Exam: normal breath sounds, lungs clear, No crackles/rales, No rhonchi, No wheezing Cardiovascular Exam: regular rate/rhythm, normal heart sounds, murmur (II/ sys murmur L and R sternal border) Gastrointestinal/Abdomen Exam: soft, normal bowel sounds, tenderness (mild, epigastric), No distention, No mass, No guarding, No rebound Extremity Exam: No pedal edema, No swelling (no pitting edema) Final Diagnosis/Problem List - Final Discharge Diagnosis/Problem (1) Hypertension Current Visit: No Status: Acute Assessment & Plan: Add amlodipine to the benicar. Recheck at Dr. Rosado's office in 1 week and my office in 2 weeks. (2) Esophageal stricture Current Visit: Yes Status: Resolved Assessment & Plan: was dilated (3) Peptic ulcer disease Current Visit: No Status: Acute Assessment & Plan: Home on 1 week of carafate and 40mg PPI x 2 weeks, followed by maintenance on 20mg PPI. (4) Renal insufficiency Current Visit: No Status: Resolved Assessment & Plan: Resolved wiht IV fluids after admission. (5) Hiatal hernia Current Visit: Yes Status: Chronic - Discharge Disposition: Home, Self-Care Condition: Good Prescriptions: New Sucralfate 1 gm [Carafate 1 GM] 1 gm PO QID #28 tablet Amlodipine Besylate 5 mg [Norvasc 5 mg] 5 mg PO QAM #30 tablet Omeprazole 40 mg PO DAILY #14 capsule. Omeprazole 20 mg PO DAILY #30 capsule. Continue Metoprolol Succinate 100 mg [Toprol Xl 100 MG] 100 mg PO DAILY Olmesartan/Hydrochlorothiazide [Benicar Hct 40-25 mg Tablet] 1 each PO DAILY Levothyroxine Sodium 75 Mcg [Synthroid 75 Mcg] 75 mcg PO DAILY Aspirin EC 81 mg [Ecotrin 81 mg] 81 mg PO DAILY Solifenacin Succinate [Vesicare] 5 mg PO DAILY Discontinued Diclofenac Sodium 75 mg PO HS Follow up with: GRACIE WALLIS [Primary Care Provider] - 1 Week
--- NOTE | 2018-03-13 08:30 | OP ---
SURGERY DATE/TIME: 03/12/2018 1803 PREOPERATIVE DIAGNOSES: 1) Dysphagia. 2) Epigastric pain. 3) History of ulcer disease. 4) History of hiatal hernia. 5) Gastritis. POSTOPERATIVE DIAGNOSES: 1) Erosive esophagitis, small prepyloric ulcer. 2) Mild gastritis. 3) Small hiatal hernia. 4) Distal esophageal narrowing felt secondary to erosive esophagitis. PROCEDURES: 1) EGD with cold biopsy of small bowel to evaluate for celiac sprue. 2) Cold biopsy of the antrum to evaluate for Helicobacter pylori. 3) Cold biopsy distal esophagus to evaluate esophagitis. 4) Esophageal balloon dilatation symptomatic distal esophageal narrowing (size 20 balloon dilator). SURGEON: Dr. Mansoor Leon. ANESTHESIA: MAC. ESTIMATED BLOOD LOSS: Minimal. INDICATIONS: As noted above. Risks and benefits explained in detail and not limited to and consent obtained. DESCRIPTION OF PROCEDURE AND FINDINGS: The patient is taken to the operating room. MAC anesthesia introduced. After official time out and no disagreement with planned procedure, bite block positioned. She had some coughing but the gastroscope was easily passed down the oropharynx proximal esophagus to distal esophagus. It had a narrowed area. It had some evidence of erosive esophagitis streaks just above a small hiatal hernia. Scope was able to be passed through this area. This area however was felt to be narrowed and it was felt it would benefit from dilatation at the end of the procedure as she is having problems eating. Scope was then passed down through patent pylorus to the junction of second and third portion of the duodenum. Given her symptoms and epigastric discomfort, it was felt that she warranted biopsy for celiac disease. Cold biopsy taken of small bowel to evaluate for celiac disease. There was no evidence of any duodenal ulcers. Back in the stomach though she did have real small prepyloric ulcer. It sounds like this is probably smaller than it was back in May when Dr. Betancur did her original scope. This was a very small area right in the prepyloric position. Cold biopsy taken in the antrum to evaluate for Helicobacter pylori. Good hemostasis noted. On retroflex she did have a small hiatal hernia. A couple pictures were taken but apparently the ones showing the small hiatal hernia did not print out correctly apparently. She did have small raised area whether these are just hyperplastic lesions in the fundus a cold biopsy is taken for path. Otherwise scope pulled back. Cold biopsy taken of the distal erosive esophagitis for further evaluation. Good hemostasis noted. The remainder of the esophagus grossly unremarkable. Given the narrowed area it was felt secondary to the erosive esophagitis it was felt this warranted attempt at dilatation. A 20 balloon catheter was carefully passed into the stomach and under direct vision and pulled back to narrowing in the distal esophagus. Slowly and carefully inflated for 30 seconds first stage, 45 seconds second stage, final stage for about 2 to 2 minutes and then the balloon was then released. The balloon catheter then carefully withdrawn. The scope much more easily passed through this area. There was no evidence of any full thickness issues or injuries secondary to dilatation at this point. Biopsy sites have good hemostasis. The remainder of the esophagus other than a few tertiary contractions were grossly otherwise unremarkable. No evidence of any mucosal lesions. The scope is withdrawn. Patient tolerated the procedure well. It was felt the patient should start on some thickened liquids for a few hours and then advance to soft diet. If she has persistent problems could consider esophagogram, upper GI evaluation. If she remains in the hospital Dr. Betancur will check on her tomorrow.
[2018-03-13] MEDS: PROTONIX 40 MG IV IV SCH (08:46)
[2018-03-13] MEDS: hydroDIURIL 25 MG PO SCH (08:46)
[2018-03-13] MEDS: Ditropan 5 MG PO SCH (08:46)
[2018-03-13] MEDS: Toprol Xl 100 MG PO SCH (08:46)
[2018-03-13] MEDS: Benicar 20 MG PO SCH (08:46)
[2018-03-13] MEDS: SYNTHROID 75 MCG PO SCH (09:20)
[2018-03-13] MEDS ORDERED: Ketamine HCl 50 MG/ML IV ONE (09:59)
[2018-03-13] MEDS ORDERED: DIPRIVAN 200 MG/20 ML IV ONE (09:59)
[2018-03-13] MEDS ORDERED: NORVASC 5 MG PO SCH (10:00)
== END 2018-03-13 10:00 | disposition home or self-care (01) ==
LOC: MED SURG 11:47
PROVIDERS: ADMIT Family Medicine; ATTEND Family Medicine
DX: I10 Essential (primary) hypertension (principal); K22.2 Esophageal obstruction; K27.9 Peptic ulcer, site unspecified, unspecified as acute or chronic, without hemorrhage or perforation; R13.10 Dysphagia, unspecified; K22.10 Ulcer of esophagus without bleeding; K29.70 Gastritis, unspecified, without bleeding; N28.9 Disorder of kidney and ureter, unspecified; K44.9 Diaphragmatic hernia without obstruction or gangrene; E03.9 Hypothyroidism, unspecified; E78.5 Hyperlipidemia, unspecified; M79.7 Fibromyalgia; R01.1 Cardiac murmur, unspecified
CPT/HCPCS: 36415; 43239; 43249; 74022; 74176; 80048; 80053; 81001; 82150; 83690; 84484; 85025; 87077; 87086; 93005; G0378; 99100; C1726; J2704; A9270-GY

== ENCOUNTER 2019-06-08 08:07 | Day surgery (SDC) | payer MEDICARE ==
[2019-06-08] MEDS ORDERED: DIPRIVAN 200 MG/20 ML IV ONE (11:29)
[2019-06-08 12:35] VITALS: O2SAT 95
[2019-06-08 13:20] VITALS: BP 152/75; PULSE 63
--- NOTE | 2019-06-09 08:31 | OP ---
PROCEDURE DATE/TIME: 06/08/2019 1143 PREOPERATIVE DIAGNOSES: 1) Epigastric pain. 2) Reflux disease. 3) Dysphagia. POSTOPERATIVE DIAGNOSES: 1) Mild gastritis. 2) Gastric polyps. 3) Small 1 to 2 cm hiatal hernia. 4) Reflux disease/biopsies pending for Candelaria's. PROCEDURE: EGD with biopsy. PROCEDURE PERFORMED BY: Ashley Betancur M.D. ESTIMATED BLOOD LOSS: Minimal. ANESTHESIA: MAC. COMPLICATIONS: None. SPECIMENS: 1) Antral biopsies upper gastric body polyp. 2) Biopsy and distal esophageal biopsies to rule out Candelaria's disease. HISTORY: This is a 73 year-old female who presents due to dysphagia symptoms as well as reflux symptoms and some mild upper epigastric discomfort. Risks, benefits, alternatives regarding EGD. H&P has been completed and discussed with her. Upper GI was reviewed as well. She does not have any obvious strictures on this test. She does have some reflux. DESCRIPTION OF PROCEDURE: The patient was placed in the left lateral decubitus position. Anesthesia induced. Complete time out was performed. The scope gently introduced into the mouth, oropharynx down to the esophagus. In the upper cervical esophagus right upon entering at about 19 to 20 cm, the patient does have a slight projection from what appears to be her spine this could be from degenerative disease that causes a very subtle narrowing of her esophagus here. However this is very subtle and likely not a significant culprit to her dysphagia. My scope very easily passed this with room to spare. The scope was gently advanced throughout the left lower esophagus down to the gastroesophageal junction into the stomach and then into the duodenum. The duodenum is normal. In the stomach there is mild gastritis throughout the stomach. She also has multiple gastric polyps. There are more gastric polyps in the upper body and cardia. These are all very small benign appearing consistent with antacid use. I did sample these polyps taking biopsies from different polyps in the cardia to insure that these are just showing to be fundic gland polyp. These sites were hemostatic after biopsy. 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 On retroflex view we also see a subtle weakness at the gastroesophageal junction consistent with a small hiatal hernia. I biopsied the antrum to rule out Helicobacter pylori disease and this site looked hemostatic. After confirming hemostasis the scope was pulled back into the distal esophagus. I took multiple biopsies for Candelaria's disease. The patient did have some reflux changes. Her acute inflammation did look slightly improved compared to our old pictures from her last EGD but she did have some reflux changes. She had no long columns of Candelaria's. The reflux changes all were under about 1 cm in length. I biopsied all sites of any significant reflux change of total of approximately five biopsies and these sites were all hemostatic after biopsy. The scope was then further withdrawn. The only other abnormality of the esophagus was a small 1 to 2 cm hiatal hernia and the right bony prominence posteriorly at her cervical esophagus. The plan will be for EGD in approximately one year to check on her Candelaria's-like reflux changes and gastric polyp sooner if she has any new or worsening symptoms. She is going to also follow up with me as an outpatient to discuss these symptoms. She is going to stay on proton pump inhibitor medication and will also attempt lifestyle changes to help with her reflux.
== END 2019-06-08 13:15 | disposition home or self-care (01) ==
LOC: SDC 08:07
PROVIDERS: ATTEND Surgery
DX: K29.70 Gastritis, unspecified, without bleeding (principal); K44.9 Diaphragmatic hernia without obstruction or gangrene; R13.10 Dysphagia, unspecified; K21.9 Gastro-esophageal reflux disease without esophagitis; K31.7 Polyp of stomach and duodenum; Z87.19 Personal history of other diseases of the digestive system; E11.9 Type 2 diabetes mellitus without complications; I10 Essential (primary) hypertension; E03.9 Hypothyroidism, unspecified
CPT/HCPCS: 82962; 88305; 99100; J2704

== ENCOUNTER 2020-08-01 08:43 | Day surgery (SDC) | payer MEDICARE ==
[2020-08-01] MEDS ORDERED: Lactated Ringers 1,000 ML IV ONE ×2 (08:54→11:36)
[2020-08-01] MEDS ORDERED: D50W 50 ml Abboject IV ONE (10:45)
[2020-08-01] MEDS ORDERED: Xylocaine-Mpf 2% 5 Ml Vial ONE (10:50)
[2020-08-01] MEDS ORDERED: DIPRIVAN 200 MG/20 ML IV ONE ×2 (10:50→11:21)
[2020-08-01 13:38] VITALS: BP 149/76; PULSE 60; O2SAT 97
--- NOTE | 2020-08-08 13:01 | OP ---
PROCEDURE DATE/TIME: 08/01/2020 1107 PREOPERATIVE DIAGNOSES: 1) Candelaria's esophagus. 2) Gastroesophageal reflux disease. POSTOPERATIVE DIAGNOSES: 1) Candelaria's esophagus. 2) Gastroesophageal reflux disease. 3) Multiple innumerable gastric polyps. PROCEDURE: EGD with biopsies and with hot snare gastric polypectomy x4. PROCEDURE PERFORMED BY: Ashley Betancur M.D. ESTIMATED BLOOD LOSS: Minimal. ANESTHESIA: MAC. SPECIMENS: 1) Antral biopsies. 2) Distal esophagus biopsies. 3) Gastric polyp. COMPLICATIONS: None. HISTORY: This is a 74 year-old patient who presented for EGD. She has a history of Candelaria's disease. Risks, benefits, alternatives, H&P and consent are all reviewed with her and confirmed preoperatively. DESCRIPTION OF PROCEDURE: The patient was then brought back to the endoscopy suite, laid in the left lateral decubitus position. A complete time out performed. The scope was gently inserted into the mouth, down into the oropharynx, esophagus, stomach and then duodenum. The duodenum looked normal. The scope was then carefully withdrawn back into the stomach. The patient had innumerable number of slightly more sessile but benign appearing gastric polyps. These are throughout the majority of her stomach specifically in the upper aspect. Any of the slightly larger sessile/semi-sessile polyps were all carefully sampled taking them in entirety with hot snare. All of them do look benign. The four largest lesions were completely removed and sent for pathology. All sites were hemostatic. I also took an antral biopsy to rule out Helicobacter pylori disease and then after insuring hemostasis, we carefully withdrew the scope back into the distal esophagus. The patient has a stable, small hiatal hernia. It is approximately 1 to 2 cm. Her Candelaria's-like changes are unchanged from prior. She had small islands measuring approximately 1 cm in greatest length at three sites. These were all biopsied as well as in all four quadrants. Multiple biopsies taken and sent for pathology. There are no signs of any issues anywhere else in her esophagus. All sites hemostatic and the scope was carefully withdrawn. The patient tolerated the procedure very well. There were no immediate complications. I will plan to do another EGD on her due to her extensive gastric polyps as well as the Candelaria's reflux in approximately one year and then we will continue her treatment based on her pathology results and her symptoms as well. She will be following up with me as an outpatient.
== END 2020-08-01 13:40 | disposition home or self-care (01) ==
LOC: SDC 08:43
PROVIDERS: ATTEND Surgery
DX: K22.70 Barrett's esophagus without dysplasia (principal); K21.9 Gastro-esophageal reflux disease without esophagitis; K22.8 Other specified diseases of esophagus; K31.7 Polyp of stomach and duodenum; I10 Essential (primary) hypertension; E11.9 Type 2 diabetes mellitus without complications
CPT/HCPCS: 36415; 82947; 84484; 88305; 93005; 99100; J2704

== ENCOUNTER 2021-04-06 16:00 | Emergency (ER) | payer MEDICARE ==
[2012-12-31 10:31] VITALS: BP 142/89
--- NOTE | 2021-04-06 16:15 | ERPHSYRPT ---
- History of Present Illness Time Seen by Provider: 04/06/21 16:15 Source: patient Exam Limitations: no limitations Physician History: This is a 75-year-old white female who is been having coughing issues for the last few weeks. Her primary care physician is Dr. Yordy Herrera and they did lab work today and the D-dimer came back elevated. The patient was notified and told to come to the emergency department for evaluation. I reviewed the lab work that was done approximately 4 hours ago. Her kidney function is normal. She is not allergic to contrast dye. Therefore, we will order a CAT scan of the chest with contrast. Patient does not have chest pain. She has only mild shortness of breath. Her BNP is 1100 and she is on diuretics. Timing/Duration: today Severity: mild Associated Symptoms: cough Allergies/Adverse Reactions: [id number] Reductase Inhibitor [Ulvrchp-Ndd-Mxx Reductase Inhibitor] Adverse Reaction (Severe, Verified 08/01/20 09:08) leg aches Home Medications: Levothyroxine Sodium [Euthyrox] 75 mcg PO DAILY 05/25/19 [History] Pantoprazole 20 mg [Protonix 20MG Tablet] 1 tab PO DAILY 05/25/19 [Hi story] Acarbose 50 mg PO TID 07/25/20 [History] Hydrochlorothiazide 12.5 mg PO DAILY 07/25/20 [History] Losartan Potassium 50 mg [Cozaar 50 MG] 50 mg PO DAILY 07/25/20 [History] Metoprolol Succinate 25 mg PO DAILY 07/25/20 [History] Pioglitazone 30 mg [Actos 30 MG] 30 mg PO DAILY 07/25/20 [History] Potassium Chloride 10 Meq Tab* [Klor Con 10 MEQ] 10 meq PO DAILY 07/25/20 [History] Multivitamin 1 each PO DAILY 08/01/20 [History] Hx Influenza Vaccination/Date Given: Yes Hx Pneumococcal Vaccination/Date Given: Yes Travel Risk - International Travel Have you traveled outside of the country in past 3 weeks: No - Coronavirus Screening Are you exhibiting any of the following symptoms?: No Close contact with a COVID-19 positive Pt in past 14-21 Days: No - Review of Systems Constitutional: No Symptoms Eyes: No Symptoms Ears, Nose, & Throat: No Symptoms Respiratory: Cough Cardiac: No Symptoms Abdominal/Gastrointestinal: No Symptoms Genitourinary Symptoms: No Symptoms Musculoskeletal: No Symptoms Skin: No Symptoms Neurological: No Symptoms Psychological: No Symptoms Endocrine: No Symptoms Hematologic/Lymphatic: No Symptoms Immunological/Allergic: No Symptoms All Other Systems: Reviewed and Negative - Past Medical History Pertinent Past Medical History: Yes Neurological History: TIA ENT History: No Pertinent History Cardiac History: High Cholesterol, Hypertension, Other Respiratory History: No Pertinent History Endocrine Medical History: Hypothyroidism Musculoskeletal History: No Pertinent History GI Medical History: GERD, Other History: No Pertinent History Psycho-Social History: No Pertinent History Female Reproductive Disorders: No Pertinent History Other Medical History: Hx of TIA. pt reports no deficits. Hx of " leaky valve". Hx of hiatal hernia and barretts - Past Surgical History Past Surgical History: Yes Neuro Surgical History: No Pertinent History Cardiac: Cardiac Catheterization Respiratory: No Pertinent History Gastrointestinal: Appendectomy, Cholecystectomy Genitourinary: Other Musculoskeletal: Orthopedic Surgery Female Surgical History: Hysterectomy Other Surgical History: Right rotator cuff repair x 3. Left rotator cuff repair x 1. Hx of bladder sling. Cholecystectomy. egd x2, stretched times 1 with egd,hx ulcer,colonoscopy - Social History Smoking Status: Never smoker Exposure to second hand smoke: No Drug Use: none Patient Lives Alone: No - Nursing Vital Signs Nursing Vital Signs: Initial Vital Signs Temperature 97.3 F 04/06/21 16:10 Pulse Rate 69 04/06/21 16:10 Respiratory Rate 22 04/06/21 16:10 Blood Pressure 177/75 04/06/21 16:10 O2 Sat by Pulse Oximetry 97 04/06/21 16:10 Pain Scale Pain Intensity 0 - Physical Exam General Appearance: no apparent distress, alert, anxiety, obese Eye Exam: PERRL/EOMI Ears, Nose, Throat Exam: normal ENT inspection, moist mucous membranes Neck Exam: normal inspection, non-tender, supple, full range of motion Respiratory Exam: normal breath sounds, lungs clear, airway intact, No chest tenderness, No respiratory distress Cardiovascular Exam: regular rate/rhythm, normal heart sounds, normal peripheral pulses Gastrointestinal/Abdomen Exam: soft, normal bowel sounds, No tenderness Pelvic Exam: not done Rectal Exam: not done Back Exam: normal inspection, normal range of motion, No CVA tenderness Extremity Exam: normal inspection, normal range of motion, pelvis stable Neurologic Exam: alert, oriented x 3, cooperative, machine deburrer II-XII nml as tested, normal mood/affect, nml cerebellar function, nml station & gait, sensation nml Skin Exam: normal color, warm, dry Lymphatic Exam: No adenopathy SpO2 Interpretation: normal O2 Delivery: Room Air - Course Nursing assessment & vital signs reviewed: Yes Ordered Tests: Active Orders 24 hr Category Date Time Status IV Insertion STAT Care 04/06/21 16:49 Active CHEST WITH CONTRAST [CT] Stat Exams 04/06/21 16:50 Taken Medication Summary Discontinued Medications Generic Name Dose Route Start Last Admin Trade Name Vane PRN Reason Stop Dose Admin Sodium Chloride 500 mls @ 500 mls/hr 04/06/21 16:49 04/06/21 18:53 Sodium Chloride 0.9% 500 Ml IV 04/06/21 17:48 Infused .Q1H ONE Infusion Sodium Chloride Confirm 04/06/21 17:01 Sodium Chloride 0.9% 500 Ml Administered 04/06/21 17:02 Dose 500 mls @ ud IV .[facility] - Progress Progress: unchanged, re-examined Progress Note: 04/06/21 19:50 CAT scan of the chest with contrast shows no obvious central PE. The PE evaluation is limited by suboptimal contrast opacification. There is evidence of pulmonary hypertension present. There is a remote T12 superior endplate fracture with 50% height loss. The remaining chest is negative Counseled pt/family regarding: diagnosis, need for follow-up, rad results - Departure Departure Disposition: Home Clinical Impression: Elevated d-dimer, Chronic cough Condition: Stable Critical Care Time: No Referrals: GRACIE GASPAR [Primary Care Provider] - Follow up/PCP as directed Additional Instructions: Follow-up with your primary care physician for further management. Take all your medications as prescribed.
[2021-04-06] MEDS ORDERED: Sodium Chloride 0.9% 500 ML 500 ML IV ONE ×2 (16:49→17:01)
--- NOTE | 2021-04-07 09:13 | XRAY ---
Indication: Cough and short of breath 6 weeks. Elevated d-dimer. Multiple contiguous axial images obtained through the chest using 80 cc Isovue 370 contrast and PE protocol. Graph comparison: None There is poor opacification of the pulmonary arteries limiting evaluation for pulmonary embolus. No obvious pulmonary embolus. Prominent left and right main pulmonary arteries up to 3 cm diameter favoring pulmonary hypertension. Heart not enlarged. Aorta mildly arteriosclerotic without aneurysm/dissection. No pathologic mediastinal/hilar lymphadenopathy. Lungs demonstrate mild bilateral dependent atelectasis with minimal right middle lobe fibrosis/scarring. Right lower lobe demonstrates 2 peripheral noncalcified nodules similar in appearance to CT abdomen/pelvis April 06, 2019 and favored to be benign given stability over the years. Again incidental medial right lower lobe calcified granuloma. No infiltrate or effusion. Bony thorax demonstrates minimal degenerative changes throughout the spine. Remote T12 superior endplate fracture with approximately 50% height loss. Limited upper abdomen demonstrates cholecystectomy clips. Impression: 1. Pulmonary embolus evaluation limited due to poor contrast opacification. No obvious pulmonary embolus or acute cardiopulmonary abnormalities.. 2. Prominent left and right main pulmonary arteries favoring pulmonary hypertension. 3. Incidental benign calcified/noncalcified micronodules presumed granulomatous and chronic bony findings.
== END 2021-04-06 20:10 | disposition home or self-care (01) ==
LOC: ED 16:00
DX: R79.1 Abnormal coagulation profile (principal); R05.3 Chronic cough; Z79.899 Other long term (current) drug therapy
CPT/HCPCS: 36000; 71260; 99284

== ENCOUNTER 2021-06-05 09:53 | Day surgery (SDC) | payer MEDICARE ==
[2021-06-05] MEDS ORDERED: Lactated Ringers 1,000 ML IV SCH (10:30)
[2021-06-05] MEDS ORDERED: DIPRIVAN 200 MG/20 ML IV ONE ×6 (12:37→14:20)
[2021-06-05] MEDS ORDERED: Xylocaine-Mpf 2% 5 Ml Vial ONE (12:37)
[2021-06-05] MEDS ORDERED: Versed 2 MG/2 ML Injection ONE (13:16)
[2021-06-05] MEDS ORDERED: GlucaGen 1 MG ONE ×2 (14:32→14:33)
[2021-06-05] MEDS ORDERED: Lactated Ringers 1,000 ML IV ONE (14:41)
[2021-06-05] MEDS ORDERED: TRANDATE 20 MG/4 ML SYRINGE IV ONE (16:07)
[2021-06-05 17:03] VITALS: PULSE 62
[2021-06-05 17:18] VITALS: BP 177/83; O2SAT 95
--- NOTE | 2021-06-13 08:41 | OP ---
PROCEDURE DATE/TIME: 06/05/2021 1247 PREOPERATIVE DIAGNOSES: 1) Dysphagia. 2) Abdominal pain. POSTOPERATIVE DIAGNOSES: 1) Small hiatal hernia. 2) Gastric polyps. 3) Gastritis. 4) Colon polyp. 5) Significant diverticulosis. 6) Mild hemorrhoidal disease. PROCEDURES: 1) EGD with cold snare and hot snare gastric polyp approximately 3 gastric polyps were taken with a hot snare and approximately 3 gastric polyps were taken with cold snare and gastric biopsies. 2) Colonoscopy with hot snare polypectomies, cold snare polypectomies, cold forceps polypectomy and tattoo. Difficult colonoscopy with polypectomy. PROCEDURE PERFORMED BY: Ashley Betancur M.D. ANESTHESIA: MAC. ESTIMATED BLOOD LOSS: Minimal. COMPLICATIONS: None. SPECIMENS: 1) Gastric antrum, gastric polyp. 2) Ascending colon polyp. 3) Large hepatic flexure polyp. 4) Proximal sigmoid polyp x2. 5) Descending colon polyp. HISTORY: This is a patient who presents for EGD and colonoscopy. She has had some dysphagia and abdominal pain and she has actually improved recently. Risks, benefits, alternatives, H&P, consent all reviewed with her and confirmed. She would like to proceed. DESCRIPTION OF PROCEDURE: She was taken to the endoscopy suite, laid in the left lateral decubitus position. A complete time out performed. Scope gently introduced into the mouth, oropharynx, down into the esophagus, stomach and duodenum. The duodenum was examined up until approximately the level of the third portion of the duodenum and this all appeared to be normal. The scope was carefully withdrawn. There was gastritis throughout the stomach that was mild most specifically in the antrum. She did have multiple polyps. All of these polyps appeared to be sessile. They were small, slightly more pale in appearance. They all appeared to be benign. These are innumerable and would not be able to remove all of these polyps and so we selected the largest polyps and removed these for sampling. Approximately six total polyps were taken. The smaller of these polyps were taken with cold snare and then the three polyps that were largest were taken with a hot snare. They were retrieved and sent to pathology. All sites were hemostatic after polypectomy. We did take an antral biopsy with cold forceps and sent this to pathology as well for Helicobacter pylori and microscopic testing. The patient does have a small hiatal hernia this was revisualized. Her gastroesophageal junction was at about 36 cm. There is no sign of Candelaria's. The scope was then carefully withdrawn. The remainder of her esophagus looked normal. PLAN: EGD in approximately one to two years based on final pathology results. Please note that I did not identify any significant stricture to cause dysphagia and this I suspect is likely due to reflux that has improved per the patient. The patient did well with her EGD and then she was positioned for colonoscopy. First, a rectal inspection and exam were done. The patient had some mild hemorrhoid disease. The scope was then inserted and gently advanced to the level of the cecum. I did use some Glucagon due diverticular spasm. The patient has quite severe diverticulosis. She has both small and large pockets throughout her sigmoid and her descending colon and she does have a few pockets outside of this in her transverse colon as well and then even in her ascending colon. We visualized the appendiceal orifice clearly. She did have some stool here this was irrigated and suctioned free. There was a small amount of solid stool throughout her colon which was able to be washed and moved and then the liquid stool was suctioned and irrigated as best we could. Overall, I believe 90% of the mucosa or more was visualized despite the prep. We then carefully withdrew the scope. The patient had multiple polyps. The ascending polyp was approximately 5 mm to 6 mm in size. It was sessile and taken in entirety with hot snare. The next polyp was larger and sessile at the hepatic flexure this was about 1.2 cm and it wrapped around the fold this is taken with hot snare in entirety. This site is clearly visualized post-polypectomy without complication this is at her hepatic flexure and thus this was more difficult to remove based on the location. It is entirely hemostatic and looked good. We then identified a proximal sigmoid polyp and then another small proximal sigmoid polyps. The smaller one was only a couple millimeters in size and the other one was still small at about 3 mm in size and these were taken individually. The smaller one with cold forceps and the other one with a cold snare, retrieved, taken in entirety. There was also another polyp in the descending colon that was taken in entirety with a cold snare that was about 6 mm in size. Again, all of the patient's polyps were sessile. The patient also had a polyp in the region of her splenic flexure that was extremely difficult to remove due to the angulation here. Due to her other polyp, especially since she did have a larger sessile polyp removed in her hepatic flexure, I did not try any dangerous maneuvers at all to remove this polyp. Despite the patient's positioning and some gentle abdominal pressure as well as attempted scope repositioning due to the angle, I did not have a great angle to be able to lay my snare and fully remove this polyp and so at this time I placed a tattoo adjacent to this polyp and we will come back after she has healed from her other polypectomy site and we will take out this polyp and attempt to be more aggressive. Right now she is also having quite significant diverticular spasm despite giving Glucagon and so I do believe that it will be helpful to come back on another day so her spasm will be less significant so that we will have more mobility with our scope. Outside of the above findings, there were no other concerning findings. The remaining polyp in the splenic flexure does appear to be very benign. It is approximately 6 to 7 mm in size. Again, this one is also sessile. PLAN: The plan will be for another colonoscopy in approximately six months. I have discussed all of the results with her family and she is going to be following up with me as an outpatient to go through all of the pathology results and I have also given her instructions with regards to diet and taking it easy as well.
== END 2021-06-05 17:00 | disposition home or self-care (01) ==
LOC: SDC 09:53
PROVIDERS: ATTEND Surgery
DX: K44.9 Diaphragmatic hernia without obstruction or gangrene (principal); K31.7 Polyp of stomach and duodenum; K29.70 Gastritis, unspecified, without bleeding; K57.30 Diverticulosis of large intestine without perforation or abscess without bleeding; K64.9 Unspecified hemorrhoids; D12.2 Benign neoplasm of ascending colon; D12.3 Benign neoplasm of transverse colon; E11.9 Type 2 diabetes mellitus without complications; I10 Essential (primary) hypertension; Z79.899 Other long term (current) drug therapy
CPT/HCPCS: 82947; 82962; 88305; J1610; J2250; J2704

== ENCOUNTER 2022-02-27 17:20 | Inpatient (IN) | payer MEDICARE ==
[2022-02-27] MEDS ORDERED: Zofran 4 MG/2 ML VIAL IV PRN (18:10)
[2022-02-27 18:54] LABS: ANION GAP 9.1 MEQ/L (5-15); BLOOD UREA NITROGEN 19 mg/dL (7-17); CHLORIDE 91 mmol/L (98-107); Calcium 8.8 mg/dL (8.4-10.2); Carbon Dioxide 30 mmol/L (22-30); Creatinine 1 0.82 mg/dL (0.52-1.04); EST GLOMERULAR FILTRATION RATE > 60.0 ML/MIN; Glucose 118 mg/dL (74-106); Potassium 3.3 mmol/L (3.5-5.1); SODIUM 126 mmol/L (137-145)
[2022-02-27 19:54] LABS: INFLUENZA A NEGATIVE (NEGATIVE); INFLUENZA B NEGATIVE (NEGATIVE); RESPIRATORY SYNCTIAL VIRUS NEGATIVE (Negative)
[2022-02-27 20:01] LABS: SARS-CoV-2 Xpert Express POSITIVE (NEGATIVE)
[2022-02-27] MEDS: TYLENOL 325 MG PO PRN (21:37)
[2022-02-27 23:17] LABS: BLOOD UREA NITROGEN 15 mg/dL (7-17); CHLORIDE 96 mmol/L (98-107); Calcium 8.5 mg/dL (8.4-10.2); Carbon Dioxide 25 mmol/L (22-30); Creatinine 1 0.72 mg/dL (0.52-1.04); EST GLOMERULAR FILTRATION RATE > 60.0 ML/MIN; Glucose 113 mg/dL (74-106); Potassium 3.4 mmol/L (3.5-5.1); SODIUM 128 mmol/L (137-145)
[2022-02-27] MEDS ORDERED: Sodium Chloride 0.9% 1000 ML 1,000 ML ONE (23:33)
[2022-02-27] MEDS ORDERED: Sodium Chloride 0.9% 1000 ML 1,000 ML IV SCH (23:45)
[2022-02-28 04:49] LABS: Hematocrit 37.5 % (35-47); Mean Cell Volume 88.7 fL (78-100); Mean Corpuscular Hemoglobin 30.7 pg (26-32); Mean Corpuscular Hgb Concent. 34.7 g/dL (32-36); Platelet Count 322 x10^3/uL (150-450); Red Blood Count 4.23 x10^6/uL (4.1-5.4); Red Cell Distribution Width 14.4 % (11.5-14.0); White Blood Count 3.9 x10^3/uL (4.0-10.5)
[2022-02-28 04:55] LABS: ANION GAP 5.4 MEQ/L (5-15); BLOOD UREA NITROGEN 14 mg/dL (7-17); CHLORIDE 99 mmol/L (98-107); Calcium 8.3 mg/dL (8.4-10.2); Carbon Dioxide 27 mmol/L (22-30); Creatinine 1 0.67 mg/dL (0.52-1.04); EST GLOMERULAR FILTRATION RATE > 60.0 ML/MIN; Glucose 101 mg/dL (74-106); Potassium 3.1 mmol/L (3.5-5.1); SODIUM 128 mmol/L (137-145)
[2022-02-28] MEDS ORDERED: APRESOLINE 20 MG/ML INJ IV ONE (08:37)
[2022-02-28] MEDS: DECADRON 10MG INJ. IV SCH (09:32)
[2022-02-28] MEDS: NORCO 5/325 MG PO PRN (09:32)
[2022-02-28] MEDS: Klor Con PO SCH ×2 (09:32→21:19)
[2022-02-28] MEDS: Cyclobenzaprine 10 MG PO PRN (09:33)
[2022-02-28] MEDS ORDERED: REMDESIVIR 200 MG in Sodium Chloride 0.9% 250 ML 250 ML IV ONE (10:00)
[2022-02-28] MEDS ORDERED: VENTOLIN COMMON CANISTER IH PRN ×3 (13:19→14:15)
[2022-02-28] MEDS ORDERED: ULTRAM 50 MG PO PRN (13:19)
[2022-02-28] MEDS ORDERED: MEDICATION INTERVENTION MC SCH (14:15)
[2022-02-28] MEDS: PLAVIX Tablet PO SCH (15:00)
[2022-02-28] MEDS: Singulair 10 MG PO SCH (15:00)
[2022-02-28] MEDS ORDERED: hydroDIURIL 25 MG PO SCH (15:00)
[2022-02-28] MEDS: SYNTHROID 75 MCG PO SCH (15:00)
[2022-02-28] MEDS: ECOTRIN 81 MG PO SCH (15:00)
[2022-02-28] MEDS ORDERED: NON-FORMULARY ITEM (Hydralazine Hcl [Hydralazine Hcl] 10 MG Tablet) PO SCH (15:00)
[2022-02-28] MEDS ORDERED: Toprol-Xl 25MG Tablets PO SCH (15:00)
[2022-02-28] MEDS: Protonix 20MG Tablet PO SCH (15:00)
[2022-02-28] MEDS: Apresoline 25 MG TABLET PO SCH ×2 (15:01→21:18)
[2022-02-28] MEDS: NORVASC 5 MG PO SCH (15:04)
[2022-02-28] MEDS: MYRBETRIQ PO SCH (15:04)
[2022-02-28] MEDS: MYSOLINE 50MG PO SCH ×2 (15:05→21:18)
--- NOTE | 2022-02-28 17:20 | PCM.HP.ADD ---
Addendum to History & Physical - History & Physical Addendum Addendum to History & Physical: This certifies that the History & Physical in the electronic chart reflects the current health status of the patient. If there are changes in the H&P these changes/exceptions are listed as follows.
--- NOTE | 2022-02-28 17:24 | PCM.NOTE ---
Date and Time: 02/28/22 1720 Subjective Assessment: Pt admitted from office yesterday for hyponatremia, but found to have Covid as well. She still feels weak but a little better. Her L buttock is hurting today. Took some norco yesterday but none today. - Review of Systems Constitutional: No Fever Musculoskeletal: Back Pain Objective Exam General Appearance: no apparent distress, alert Neurologic Exam: oriented x 3, cooperative Skin Exam: normal color, warm, dry, No rash Ears, Nose, Throat Exam: moist mucous membranes Respiratory Exam: normal breath sounds, lungs clear, No crackles/rales, No rhonchi, No wheezing Cardiovascular Exam: regular rate/rhythm, normal heart sounds, murmur (II/ sys murmur) Gastrointestinal/Abdomen Exam: soft, normal bowel sounds, No tenderness, No distention, No mass, No guarding, No rebound Extremity Exam: normal inspection, No pedal edema, No swelling OBJECTIVE DATA Vital Signs: Vital Signs - 24 hr Temp Pulse Resp BP Pulse Ox 02/28/22 16:28 97.3 F 81 20 174/86 94 L 02/28/22 14:27 83 18 95 02/28/22 14:00 16 02/28/22 11:17 97.7 F 72 16 179/81 91 L 02/28/22 07:26 97.5 F 67 16 190/91 91 L 02/28/22 05:46 18 02/28/22 04:00 97.1 F 68 18 146/79 95 02/28/22 02:00 18 02/28/22 00:00 98.5 F 71 18 152/73 93 L 02/27/22 22:00 20 02/27/22 19:59 98.4 F 70 20 197/94 97 02/27/22 18:45 98.4 F 70 20 197/94 97 Pain Assessment - Last Documented Pain Intensity 2 Pain Scale Used 0-10 Pain Scale Intake and Output: Intake & Output 02/26/22 02/27/22 02/28/22 03/01/22 11:59 11:59 11:59 11:59 Intake Total 994 Output Total 1950 700 Balance -956 -700 Weight 103.1 kg Lab Results: Lab Results-Last 24 Hours 02/27/22 02/27/22 02/27/22 Range/Units 18:35 18:35 20:26 WBC (4.0-10.5) x10^3/uL RBC (4.1-5.4) x10^6/uL Hgb (12.0-16.0) g/dL Hct (35-47) % MCV (78-100) fL MCH (26-32) pg MCHC (32-36) g/dL RDW (11.5-14.0) % Plt Count (150-450) x10^3/uL MPV (7.5-11.0) fL Sodium 126 L (137-145) mmol/L Potassium 3.3 L (3.5-5.1) mmol/L Chloride 91 L (98-107) mmol/L Carbon Dioxide 30 (22-30) mmol/L Anion Gap 9.1 (5-15) MEQ/L BUN 19 H (7-17) mg/dL Creatinine 0.82 (0.52-1.04) mg/dL Estimated GFR > 60.0 ML/MIN Glucose 118 H (74-106) mg/dL POC Glucometer 106 (74 to 106) mg/dL Calcium 8.8 (8.4-10.2) mg/dL Influenza Type A Ag NEGATIVE (NEGATIVE) Influenza Type B Ag NEGATIVE (NEGATIVE) RSV (PCR) NEGATIVE (Negative) SARS-CoV-2 (PCR) POSITIVE A (NEGATIVE) 02/27/22 02/28/22 02/28/22 Range/Units 23:02 04:16 04:16 WBC 3.9 L (4.0-10.5) x10^3/uL RBC 4.23 (4.1-5.4) x10^6/uL Hgb 13.0 (12.0-16.0) g/dL Hct 37.5 (35-47) % MCV 88.7 (78-100) fL MCH 30.7 (26-32) pg MCHC 34.7 (32-36) g/dL RDW 14.4 H (11.5-14.0) % Plt Count 322 (150-450) x10^3/uL MPV 9.0 (7.5-11.0) fL Sodium 128 L 128 L (137-145) mmol/L Potassium 3.4 L 3.1 L (3.5-5.1) mmol/L Chloride 96 L 99 (98-107) mmol/L Carbon Dioxide 25 27 (22-30) mmol/L Anion Gap 10.0 5.4 (5-15) MEQ/L BUN 15 14 (7-17) mg/dL Creatinine 0.72 0.67 (0.52-1.04) mg/dL Estimated GFR > 60.0 > 60.0 ML/MIN Glucose 113 H 101 (74-106) mg/dL POC Glucometer (74 to 106) mg/dL Calcium 8.5 8.3 L (8.4-10.2) mg/dL Influenza Type A Ag (NEGATIVE) Influenza Type B Ag (NEGATIVE) RSV (PCR) (Negative) SARS-CoV-2 (PCR) (NEGATIVE) 02/28/22 02/28/22 02/28/22 Range/Units 06:44 11:05 16:27 WBC (4.0-10.5) x10^3/uL RBC (4.1-5.4) x10^6/uL Hgb (12.0-16.0) g/dL Hct (35-47) % MCV (78-100) fL MCH (26-32) pg MCHC (32-36) g/dL RDW (11.5-14.0) % Plt Count (150-450) x10^3/uL MPV (7.5-11.0) fL Sodium (137-145) mmol/L Potassium (3.5-5.1) mmol/L Chloride (98-107) mmol/L Carbon Dioxide (22-30) mmol/L Anion Gap (5-15) MEQ/L BUN (7-17) mg/dL Creatinine (0.52-1.04) mg/dL Estimated GFR ML/MIN Glucose (74-106) mg/dL POC Glucometer 99 124 H 123 H (74 to 106) mg/dL Calcium (8.4-10.2) mg/dL Influenza Type A Ag (NEGATIVE) Influenza Type B Ag (NEGATIVE) RSV (PCR) (Negative) SARS-CoV-2 (PCR) (NEGATIVE) Assessment/Plan (1) COVID Current Visit: Yes Status: Acute Assessment & Plan: Started dexamethasone and remdesivir after discussing with pt. Code(s): U07.1 - COVID-19 (2) Hyponatremia Current Visit: Yes Status: Acute Assessment & Plan: fluid restriction. Given hypertonic saline last night with small improvement, 12 6-128. Code(s): E87.1 - HYPO-OSMOLALITY AND HYPONATREMIA (3) Hypokalemia Current Visit: Yes Status: Acute Code(s): E87.6 - HYPOKALEMIA (4) Hypertension Current Visit: No Status: Acute Qualifiers: Hypertension type: primary hypertension Qualified Code(s): I10 - Essential (primary) hypertension Code(s): I10 - ESSENTIAL (PRIMARY) HYPERTENSION (5) Renal insufficiency Current Visit: No Status: Chronic Assessment & Plan: chronic kidney dz
[2022-02-28] MEDS: Advair Hfa 115/21 Common canister IH SCH (19:48)
[2022-02-28] MEDS: Flonase NASAL NS SCH (21:19)
[2022-02-28] MEDS ORDERED: Flonase NASAL NS SCH (22:00)
[2022-03-01] MEDS: TYLENOL 325 MG PO PRN (03:22)
[2022-03-01] MEDS: NORVASC 5 MG PO SCH ×2 (05:34→09:18)
[2022-03-01 07:13] LABS: ANION GAP 8.2 MEQ/L (5-15); BLOOD UREA NITROGEN 14 mg/dL (7-17); CHLORIDE 98 mmol/L (98-107); Calcium 8.7 mg/dL (8.4-10.2); Carbon Dioxide 25 mmol/L (22-30); Creatinine 1 0.58 mg/dL (0.52-1.04); EST GLOMERULAR FILTRATION RATE > 60.0 ML/MIN; Glucose 101 mg/dL (74-106); SODIUM 129 mmol/L (137-145)
[2022-03-01 07:16] LABS: Potassium 2.9 mmol/L (3.5-5.1)
[2022-03-01] MEDS ORDERED: K-LYTE PO ONE (07:18)
[2022-03-01] MEDS: NORCO 5/325 MG PO PRN (07:45)
[2022-03-01] MEDS: Sodium Chloride 0.9% W/ 20 mEq KCl/LITER 1,000 ML IV SCH (07:46)
[2022-03-01 08:00] LABS: Absolute Neutrophil Ct (ANC) 2.56 x10^3/uL (1.4-6.9); Basophil (Absolute #) 0.01 x10^3/uL (0-0.4); Eosinophil % 0.4 % (0.00-5.0); Eosinophil (Absolute #) 0.02 x10^3/uL (0-0.5); Hematocrit 39.5 % (35-47); Hemoglobin 13.2 g/dL (12.0-16.0); Lymphocyte (Absolute #) 1.55 x10^3/uL (1.0-4.6); Lymphocytes % 32.9 % (24.0-44.0); Mean Cell Volume 90.4 fL (78-100); Mean Corpuscular Hemoglobin 30.2 pg (26-32); Mean Corpuscular Hgb Concent. 33.4 g/dL (32-36); Mean Platelet Volume 9.3 fL (7.5-11.0); Monocyte (Absolute #) 0.56 x10^3/uL (0.0-1.3); Monocytes % 11.9 % (0.0-12.0); Neutrophil % 54.4 % (36.0-66.0); Platelet Count 372 x10^3/uL (150-450); Red Blood Count 4.37 x10^6/uL (4.1-5.4); Red Cell Distribution Width 14.2 % (11.5-14.0); White Blood Count 4.7 x10^3/uL (4.0-10.5)
[2022-03-01] MEDS: Advair Hfa 115/21 Common canister IH SCH ×2 (08:04→18:10)
--- NOTE | 2022-03-01 08:10 | PCM.NOTE ---
Date and Time: 03/01/22806 Subjective Assessment: She was feeling somewhat better yesterday, steadier on her feet, then started having R hip pain and some lower abd pain. Tolerated po. BP this morning 193/92; otherwise in 140s and 170s systolic. - Review of Systems Constitutional: Weakness, No Fever Abdominal/Gastrointestinal: Abdominal Pain Musculoskeletal: Arthralgias Objective Exam General Appearance: no apparent distress, alert Neurologic Exam: oriented x 3, cooperative Skin Exam: normal color, warm, dry, No rash Eye Exam: eyes nml inspection Ears, Nose, Throat Exam: moist mucous membranes Neck Exam: normal inspection Respiratory Exam: normal breath sounds, lungs clear, No crackles/rales, No rhonchi, No wheezing Cardiovascular Exam: regular rate/rhythm, normal heart sounds, No murmur Gastrointestinal/Abdomen Exam: soft, normal bowel sounds, No tenderness, No distention, No mass, No guarding, No rebound Extremity Exam: other (nonpitting pretibial edema as usual) Back Exam: normal inspection, No rash OBJECTIVE DATA Vital Signs: Vital Signs - 24 hr Temp Pulse Resp BP Pulse Ox 03/01/22 06:47 97.4 F 79 17 197/92 92 L 03/01/22 06:00 17 03/01/22 04:00 76 193/92 03/01/22 03:51 96.9 F 91 H 21 94 L 03/01/22 02:00 18 02/28/22 23:47 97.1 F 83 18 147/80 94 L 02/28/22 19:48 96 H 20 97 02/28/22 19:33 97.3 F 93 H 21 175/97 97 02/28/22 17:51 20 02/28/22 16:28 97.3 F 81 20 174/86 94 L 02/28/22 14:27 83 18 95 02/28/22 14:00 16 02/28/22 11:17 97.7 F 72 16 179/81 91 L Pain Assessment - Last Documented Pain Intensity 5 Pain Scale Used 0-10 Pain Scale Intake and Output: Intake & Output 02/26/22 02/27/22 02/28/22 03/01/22 11:59 11:59 11:59 11:59 Intake Total 994 Output Total 1950 3000 Balance -956 -3000 Weight 103.1 kg Lab Results: Lab Results-Last 24 Hours 02/28/22 02/28/22 02/28/22 Range/Units 11:05 16:27 20:30 Sodium (137-145) mmol/L Potassium (3.5-5.1) mmol/L Chloride (98-107) mmol/L Carbon Dioxide (22-30) mmol/L Anion Gap (5-15) MEQ/L BUN (7-17) mg/dL Creatinine (0.52-1.04) mg/dL Estimated GFR ML/MIN Glucose (74-106) mg/dL POC Glucometer 124 H 123 H 131 H (74 to 106) mg/dL Calcium (8.4-10.2) mg/dL 03/01/22 03/01/22 Range/Units 07:03 07:05 Sodium 129 L (137-145) mmol/L Potassium 2.9 L* (3.5-5.1) mmol/L Chloride 98 (98-107) mmol/L Carbon Dioxide 25 (22-30) mmol/L Anion Gap 8.2 (5-15) MEQ/L BUN 14 (7-17) mg/dL Creatinine 0.58 (0.52-1.04) mg/dL Estimated GFR > 60.0 ML/MIN Glucose 101 (74-106) mg/dL POC Glucometer 103 (74 to 106) mg/dL Calcium 8.7 (8.4-10.2) mg/dL Assessment/Plan (1) COVID Current Visit: Yes Status: Acute Assessment & Plan: She is on dexamethasone and remdesivir. Code(s): U07.1 - COVID-19 (2) Hypertensive urgency Current Visit: Yes Status: Acute Assessment & Plan: Increase metoprolol from 25 to 50mg/d. Was taken off ACEi/ARB by nephrology in the past. Could increase hydralazine to QID if needed. Code(s): I16.0 - HYPERTENSIVE URGENCY (3) Hyponatremia Current Visit: Yes Status: Acute Assessment & Plan: improved; No 129 this morning. Will stop HCTZ. Code(s): E87.1 - HYPO-OSMOLALITY AND HYPONATREMIA (4) Hypokalemia Current Visit: Yes Status: Acute Code(s): E87.6 - HYPOKALEMIA (5) Hypertension Current Visit: No Status: Chronic Qualifiers: Hypertension type: primary hypertension Qualified Code(s): I10 - Essential (primary) hypertension Code(s): I10 - ESSENTIAL (PRIMARY) HYPERTENSION (6) Renal insufficiency Current Visit: No Status: Chronic
[2022-03-01] MEDS: Apresoline 25 MG TABLET PO SCH ×3 (09:19→21:25)
[2022-03-01] MEDS: Prozac 20 MG PO SCH (09:20)
[2022-03-01] MEDS: Protonix 20MG Tablet PO SCH (09:20)
[2022-03-01] MEDS: Klor Con PO SCH ×2 (09:20→21:25)
[2022-03-01] MEDS: Toprol Xl 50 MG PO SCH (09:20)
[2022-03-01] MEDS: REMDESIVIR 100 MG in Sodium Chloride 0.9% 100 ML IV SCH (09:20)
[2022-03-01] MEDS: PLAVIX Tablet PO SCH (09:20)
[2022-03-01] MEDS: Singulair 10 MG PO SCH (09:20)
[2022-03-01] MEDS: Cyclobenzaprine 10 MG PO PRN (09:20)
[2022-03-01] MEDS: MYRBETRIQ PO SCH (09:20)
[2022-03-01] MEDS: MYSOLINE 50MG PO SCH ×3 (09:20→21:25)
[2022-03-01] MEDS: SYNTHROID 75 MCG PO SCH (09:20)
[2022-03-01] MEDS: ECOTRIN 81 MG PO SCH (09:20)
[2022-03-01] MEDS: NORCO 5/325 MG PO SCH ×4 (09:21→19:52)
[2022-03-01] MEDS: DECADRON 10MG INJ. IV SCH (09:22)
[2022-03-01] MEDS ORDERED: Cyclobenzaprine 10 MG PO SCH (10:00)
[2022-03-01] MEDS ORDERED: NON-FORMULARY ITEM (Budesonide/Glycopyr/Formoterol [Breztri Aerosphere Inhaler] 10.7 GM Hf IH SCH (10:00)
[2022-03-01] MEDS ORDERED: NON-FORMULARY ITEM (Metoprolol Succinate 25 MG Tab.Er.24h) PO SCH (10:00)
[2022-03-01] MEDS ORDERED: NON-FORMULARY ITEM (Hydrochlorothiazide [Hydrochlorothiazide] 12.5 MG Capsule) PO SCH (10:00)
[2022-03-01] MEDS ORDERED: NON-FORMULARY ITEM (Fluoxetine Hcl [Fluoxetine Hcl] 40 MG Capsule) PO SCH (10:00)
[2022-03-01] MEDS ORDERED: NON-FORMULARY ITEM (Fluticasone/Vilanterol [Breo Ellipta 200-25 Mcg Inh] 1 EACH Blst.W.Dev IH SCH (10:00)
[2022-03-01] MEDS ORDERED: NON-FORMULARY ITEM (Amlodipine Besylate [Amlodipine Besylate] 10 MG Tablet) PO SCH (10:00)
[2022-03-01] MEDS ORDERED: Toprol-Xl 25MG Tablets PO SCH (10:00)
[2022-03-01] MEDS ORDERED: VENTOLIN COMMON CANISTER IH PRN (18:13)
[2022-03-01] MEDS: Flonase NASAL NS SCH (21:25)
[2022-03-02] MEDS: Sodium Chloride 0.9% W/ 20 mEq KCl/LITER 1,000 ML IV SCH ×2 (03:19→22:29)
[2022-03-02] MEDS: Cyclobenzaprine 10 MG PO PRN (03:57)
[2022-03-02] MEDS: NORCO 5/325 MG PO SCH ×4 (05:42→22:26)
[2022-03-02] MEDS: Advair Hfa 115/21 Common canister IH SCH ×2 (07:37→19:15)
--- NOTE | 2022-03-02 08:53 | PCM.NOTE ---
Date and Time: 03/02/22 0851 Subjective Assessment: patient c/o vague low back and pain in her "bladder area" she is taking po, currently on room air and appears to be in no distress Objective Exam General Appearance: no apparent distress, obese Respiratory Exam: normal breath sounds, lungs clear, No respiratory distress Cardiovascular Exam: regular rate/rhythm, normal heart sounds Gastrointestinal/Abdomen Exam: soft, No tenderness, No mass Extremity Exam: normal inspection, normal range of motion OBJECTIVE DATA Vital Signs: Vital Signs - 24 hr Temp Pulse Resp BP Pulse Ox 03/02/22 07:52 84 18 95 03/02/22 06:00 18 03/02/22 03:54 97.1 F 74 18 189/98 95 03/02/22 02:00 16 03/02/22 00:00 96.9 F 76 18 190/88 95 03/01/22 22:00 19 03/01/22 20:24 97.3 F 76 19 180/79 92 L 03/01/22 18:13 76 18 96 03/01/22 18:00 18 03/01/22 17:00 97.5 F 75 16 162/74 95 03/01/22 14:00 15 03/01/22 11:30 97.1 F 68 15 166/84 93 L 03/01/22 09:45 16 Pain Assessment - Last Documented Pain Intensity 7 Pain Scale Used [facility] Intake and Output: Intake & Output 02/27/22 02/28/22 03/01/22 03/02/22 11:59 11:59 11:59 11:59 Intake Total 994 1981 Output Total 1950 3000 1600 Balance -956 -3000 381 Weight 103.1 kg Lab Results: Lab Results-Last 24 Hours 03/01/22 03/01/22 03/01/22 Range/Units 10:56 16:20 20:37 POC Glucometer 131 H 196 H 150 H (74 to 106) mg/dL 03/02/22 Range/Units 07:47 POC Glucometer 108 H (74 to 106) mg/dL Assessment/Plan (1) COVID Current Visit: Yes Status: Acute Assessment & Plan: continue remdesivir and IV dexamethasone, currently on room air and quite stable Code(s): U07.1 - COVID-19 (2) Hypertensive urgency Current Visit: Yes Status: Acute Assessment & Plan: currently receiving amlodipine 10mg daily and hydralazine 12.5mg tid (only takes 10mg at home), will increase her hydralazine to 25mg tid at this time. repeat lytes this am Code(s): I16.0 - HYPERTENSIVE URGENCY (3) Hypokalemia Current Visit: Yes Status: Acute Code(s): E87.6 - HYPOKALEMIA (4) Hyponatremia Current Visit: Yes Status: Acute Code(s): E87.1 - HYPO-OSMOLALITY AND HYPONATREMIA
[2022-03-02 09:10] LABS: Absolute Neutrophil Ct (ANC) 4.37 x10^3/uL (1.4-6.9); Basophil (Absolute #) 0.01 x10^3/uL (0-0.4); Eosinophil % 0.4 % (0.00-5.0); Eosinophil (Absolute #) 0.03 x10^3/uL (0-0.5); Hematocrit 40.9 % (35-47); Hemoglobin 13.9 g/dL (12.0-16.0); Lymphocyte (Absolute #) 1.91 x10^3/uL (1.0-4.6); Lymphocytes % 27.6 % (24.0-44.0); Mean Cell Volume 90.1 fL (78-100); Mean Corpuscular Hemoglobin 30.6 pg (26-32); Mean Platelet Volume 8.8 fL (7.5-11.0); Monocytes % 8.7 % (0.0-12.0); Neutrophil % 63.1 % (36.0-66.0); Platelet Count 370 x10^3/uL (150-450); Red Blood Count 4.54 x10^6/uL (4.1-5.4); Red Cell Distribution Width 14.4 % (11.5-14.0); White Blood Count 6.9 x10^3/uL (4.0-10.5)
[2022-03-02] MEDS: PLAVIX Tablet PO SCH (09:20)
[2022-03-02] MEDS: Singulair 10 MG PO SCH (09:21)
[2022-03-02] MEDS: SYNTHROID 75 MCG PO SCH (09:21)
[2022-03-02] MEDS: Prozac 20 MG PO SCH (09:21)
[2022-03-02] MEDS: Klor Con PO SCH ×2 (09:21→22:26)
[2022-03-02] MEDS: MYRBETRIQ PO SCH (09:21)
[2022-03-02] MEDS: MYSOLINE 50MG PO SCH ×3 (09:21→22:27)
[2022-03-02] MEDS: ECOTRIN 81 MG PO SCH (09:21)
[2022-03-02] MEDS: Protonix 20MG Tablet PO SCH (09:22)
[2022-03-02 09:23] LABS: ANION GAP 12.4 MEQ/L (5-15); BLOOD UREA NITROGEN 15 mg/dL (7-17); CHLORIDE 101 mmol/L (98-107); Calcium 8.8 mg/dL (8.4-10.2); Carbon Dioxide 22 mmol/L (22-30); Creatinine 1 0.58 mg/dL (0.52-1.04); EST GLOMERULAR FILTRATION RATE > 60.0 ML/MIN; Glucose 115 mg/dL (74-106); MAGNESIUM 1.9 mg/dL (1.6-2.3); Potassium 3.4 mmol/L (3.5-5.1); SODIUM 132 mmol/L (137-145)
[2022-03-02] MEDS: DECADRON 10MG INJ. IV SCH (09:23)
[2022-03-02] MEDS: Toprol Xl 50 MG PO SCH (09:23)
[2022-03-02] MEDS: REMDESIVIR 100 MG in Sodium Chloride 0.9% 100 ML IV SCH (09:25)
[2022-03-02] MEDS: Apresoline 25 MG TABLET PO SCH ×3 (09:26→22:27)
[2022-03-02 12:33] LABS: Appearance CLEAR (CLEAR); Bilirubin NEGATIVE (NEGATIVE); Dipstick done @ ? MAIN LAB; Glucose NEGATIVE (NEGATIVE); Ketones NEGATIVE (NEGATIVE); Nitrite NEGATIVE (NEGATIVE); Protein,Urine Dip NEGATIVE (Negative); RBC SMALL Ery/ul (0-5); Specific Gravity 1.015 (1.005-1.025); Urobilinogen 0.2 mg/dL (0-1)
[2022-03-02 12:38] LABS: Bacteria FEW /HPF (NEGATIVE); Mucus SLIGHT /HPF (NEGATIVE); RBC 26-50 /HPF (0-2); WBC 26-50 /HPF (0-5)
[2022-03-02 12:39] LABS: Urine Cultured Indicated? YES
[2022-03-02] MEDS: Flonase NASAL NS SCH (22:26)
[2022-03-03] MEDS: Apresoline 25 MG TABLET PO SCH ×3 (04:29→21:12)
[2022-03-03 06:20] LABS: ANION GAP 9.4 MEQ/L (5-15); BLOOD UREA NITROGEN 17 mg/dL (7-17); CHLORIDE 102 mmol/L (98-107); Calcium 8.8 mg/dL (8.4-10.2); Carbon Dioxide 23 mmol/L (22-30); Creatinine 1 0.56 mg/dL (0.52-1.04); EST GLOMERULAR FILTRATION RATE > 60.0 ML/MIN; Glucose 97 mg/dL (74-106); MAGNESIUM 1.9 mg/dL (1.6-2.3); Potassium 3.5 mmol/L (3.5-5.1); SODIUM 131 mmol/L (137-145)
[2022-03-03 06:23] LABS: Absolute Neutrophil Ct (ANC) 3.93 x10^3/uL (1.4-6.9); Basophil (Absolute #) 0.02 x10^3/uL (0-0.4); Eosinophil % 0.4 % (0.00-5.0); Eosinophil (Absolute #) 0.03 x10^3/uL (0-0.5); Hematocrit 38.3 % (35-47); Hemoglobin 13.2 g/dL (12.0-16.0); Lymphocyte (Absolute #) 2.13 x10^3/uL (1.0-4.6); Lymphocytes % 31.4 % (24.0-44.0); Mean Cell Volume 87.2 fL (78-100); Mean Corpuscular Hemoglobin 30.1 pg (26-32); Mean Corpuscular Hgb Concent. 34.5 g/dL (32-36); Mean Platelet Volume 9.1 fL (7.5-11.0); Monocyte (Absolute #) 0.65 x10^3/uL (0.0-1.3); Monocytes % 9.6 % (0.0-12.0); Platelet Count 416 x10^3/uL (150-450); Red Blood Count 4.39 x10^6/uL (4.1-5.4); Red Cell Distribution Width 14.3 % (11.5-14.0); White Blood Count 6.8 x10^3/uL (4.0-10.5)
[2022-03-03] MEDS: Advair Hfa 115/21 Common canister IH SCH (07:50)
[2022-03-03] MEDS: MYRBETRIQ PO SCH (08:49)
[2022-03-03] MEDS: DECADRON 10MG INJ. IV SCH (08:49)
[2022-03-03] MEDS: Toprol Xl 50 MG PO SCH (08:49)
[2022-03-03] MEDS: PLAVIX Tablet PO SCH (08:49)
[2022-03-03] MEDS: ECOTRIN 81 MG PO SCH (08:49)
[2022-03-03] MEDS: Prozac 20 MG PO SCH (08:49)
[2022-03-03] MEDS: MYSOLINE 50MG PO SCH ×3 (08:50→21:12)
[2022-03-03] MEDS: SYNTHROID 75 MCG PO SCH (08:50)
[2022-03-03] MEDS: Protonix 20MG Tablet PO SCH (08:50)
[2022-03-03] MEDS: Klor Con PO SCH ×2 (08:50→21:12)
[2022-03-03] MEDS: NORVASC 5 MG PO SCH (08:50)
[2022-03-03] MEDS: Singulair 10 MG PO SCH (08:50)
[2022-03-03] MEDS: REMDESIVIR 100 MG in Sodium Chloride 0.9% 100 ML IV SCH (08:51)
[2022-03-03] MEDS: NORCO 5/325 MG PO SCH ×4 (09:06→21:12)
[2022-03-03] MEDS: ROCEPHIN 1 Gm-D5w 50 ml Bag** 1 G/50 ML IVPB IV SCH ×2 (10:22→10:23)
[2022-03-03] MEDS ORDERED: TRANDATE 20 MG/4 ML SYRINGE IV PRN (14:49)
--- NOTE | 2022-03-03 15:20 | PCM.NOTE ---
Date and Time: 03/03/22 1509 Subjective Assessment: She is feeling better, still weak but able to go to the bathroom by herself. Found to have UTI and started on rocephin this morning. Still having some lower abd discomfort. BP high, up to 207/97 overnight. - Review of Systems Constitutional: No Fever Respiratory: Cough Abdominal/Gastrointestinal: Abdominal Pain Objective Exam General Appearance: no apparent distress, alert Neurologic Exam: oriented x 3, cooperative Skin Exam: normal color, warm, dry, No rash Eye Exam: eyes nml inspection Ears, Nose, Throat Exam: moist mucous membranes Neck Exam: normal inspection Respiratory Exam: normal breath sounds, lungs clear, No crackles/rales, No rhonchi, No wheezing Cardiovascular Exam: regular rate/rhythm, normal heart sounds, No murmur Gastrointestinal/Abdomen Exam: soft, normal bowel sounds, No tenderness, No distention, No mass, No guarding, No rebound Extremity Exam: swelling (nonpitting pretibial edema as usual) Back Exam: normal inspection, No rash OBJECTIVE DATA Vital Signs: Vital Signs - 24 hr Temp Pulse Resp BP Pulse Ox 03/03/22 11:37 97.1 F 75 22 181/88 94 L 03/03/22 07:57 72 20 95 03/03/22 07:46 97.7 F 72 24 191/80 97 03/03/22 06:00 20 03/03/22 04:00 98.1 F 76 20 207/97 97 03/03/22 02:00 18 03/03/22 00:00 97.7 F 71 18 180/88 96 03/02/22 22:00 27 H 03/02/22 20:00 97.9 F 76 20 174/75 97 03/02/22 19:15 73 22 96 03/02/22 16:00 97.3 F 73 23 189/96 96 Pain Assessment - Last Documented Pain Intensity 7 Pain Scale Used 0-10 Pain Scale Intake and Output: Intake & Output 03/01/22 03/02/22 03/03/22 03/04/22 11:59 11:59 11:59 11:59 Intake Total 1981 1580 Output Total 3000 1900 1300 250 Balance -3000 81 280 -250 Weight 103.1 kg Lab Results: Lab Results-Last 24 Hours 10/07/22 10/07/22 10/08/22 Range/Units 16:53 21:08 06:00 WBC 6.8 (4.0-10.5) x10^3/uL RBC 4.39 (4.1-5.4) x10^6/uL Hgb 13.2 (12.0-16.0) g/dL Hct 38.3 (35-47) % MCV 87.2 (78-100) fL MCH 30.1 (26-32) pg MCHC 34.5 (32-36) g/dL RDW 14.3 H (11.5-14.0) % Plt Count 416 (150-450) x10^3/uL MPV 9.1 (7.5-11.0) fL Gran % 58.0 (36.0-66.0) % Immature Gran % (Auto) 0.3 (0.00-0.4) % Nucleat RBC Rel Count 0.0 (0.00-0.1) % Eos # (Auto) 0.03 (0-0.5) x10^3/uL Immature Gran # (Auto) 0.02 (0.00-0.03) x10^3u/L Absolute Lymphs (auto) 2.13 (1.0-4.6) x10^3/uL Absolute Monos (auto) 0.65 (0.0-1.3) x10^3/uL Absolute Nucleated RBC 0.00 (0.00-0.01) x10^3u/L Lymphocytes % 31.4 (24.0-44.0) % Monocytes % 9.6 (0.0-12.0) % Eosinophils % 0.4 (0.00-5.0) % Basophils % 0.3 (0.0-0.4) % Absolute Granulocytes 3.93 (1.4-6.9) x10^3/uL Basophils # 0.02 (0-0.4) x10^3/uL Sodium (137-145) mmol/L Potassium (3.5-5.1) mmol/L Chloride (98-107) mmol/L Carbon Dioxide (22-30) mmol/L Anion Gap (5-15) MEQ/L BUN (7-17) mg/dL Creatinine (0.52-1.04) mg/dL Estimated GFR ML/MIN Glucose (74-106) mg/dL POC Glucometer 149 H 113 H (74 to 106) mg/dL Calcium (8.4-10.2) mg/dL Magnesium (1.6-2.3) mg/dL 03/03/22 03/03/22 03/03/22 Range/Units 06:00 07:41 11:32 WBC (4.0-10.5) x10^3/uL RBC (4.1-5.4) x10^6/uL Hgb (12.0-16.0) g/dL Hct (35-47) % MCV (78-100) fL MCH (26-32) pg MCHC (32-36) g/dL RDW (11.5-14.0) % Plt Count (150-450) x10^3/uL MPV (7.5-11.0) fL Gran % (36.0-66.0) % Immature Gran % (Auto) (0.00-0.4) % Nucleat RBC Rel Count (0.00-0.1) % Eos # (Auto) (0-0.5) x10^3/uL Immature Gran # (Auto) (0.00-0.03) x10^3u/L Absolute Lymphs (auto) (1.0-4.6) x10^3/uL Absolute Monos (auto) (0.0-1.3) x10^3/uL Absolute Nucleated RBC (0.00-0.01) x10^3u/L Lymphocytes % (24.0-44.0) % Monocytes % (0.0-12.0) % Eosinophils % (0.00-5.0) % Basophils % (0.0-0.4) % Absolute Granulocytes (1.4-6.9) x10^3/uL Basophils # (0-0.4) x10^3/uL Sodium 131 L (137-145) mmol/L Potassium 3.5 (3.5-5.1) mmol/L Chloride 102 (98-107) mmol/L Carbon Dioxide 23 (22-30) mmol/L Anion Gap 9.4 (5-15) MEQ/L BUN 17 (7-17) mg/dL Creatinine 0.56 (0.52-1.04) mg/dL Estimated GFR > 60.0 ML/MIN Glucose 97 (74-106) mg/dL POC Glucometer 90 138 H (74 to 106) mg/dL Calcium 8.8 (8.4-10.2) mg/dL Magnesium 1.9 (1.6-2.3) mg/dL Assessment/Plan (1) COVID Current Visit: Yes Status: Acute Assessment & Plan: her weakness is improving. Code(s): U07.1 - COVID-19 (2) UTI (urinary tract infection) Current Visit: Yes Status: Acute Qualifiers: Urinary tract infection type: acute cystitis Hematuria presence: without hematuria Qualified Code(s): N30.00 - Acute cystitis without hematuria Assessment & Plan: started IV rocephin; ucx pending. Pt needs to stay until urine culture results are in, as a partially treated UTI would increase her risk of fall at home. Code(s): N39.0 - URINARY TRACT INFECTION, SITE NOT SPECIFIED (3) Hypertensive urgency Current Visit: Yes Status: Acute Assessment & Plan: continues to have elevated BP; added labetalol prn; increased toprol from 25 to 50mg po daily 2 weeks ago. Code(s): I16.0 - HYPERTENSIVE URGENCY (4) Hyponatremia Current Visit: Yes Status: Chronic Assessment & Plan: improved Code(s): E87.1 - HYPO-OSMOLALITY AND HYPONATREMIA (5) Hypokalemia Current Visit: Yes Status: Acute Code(s): E87.6 - HYPOKALEMIA (6) Hypertension Current Visit: No Status: Chronic Qualifiers: Hypertension type: primary hypertension Qualified Code(s): I10 - Essential (primary) hypertension Code(s): I10 - ESSENTIAL (PRIMARY) HYPERTENSION (7) Renal insufficiency Current Visit: No Status: Chronic
[2022-03-03] MEDS: TRANDATE 20 MG/4 ML SYRINGE IV PRN (16:44)
[2022-03-03] MEDS: Acidophilus TABLET PO SCH ×2 (16:44→21:12)
[2022-03-03] MEDS ORDERED: HYDROCODONE-CHLORPHEN ER SUSP PO PRN (18:24)
[2022-03-03] MEDS: Sodium Chloride 0.9% W/ 20 mEq KCl/LITER 1,000 ML IV SCH (19:39)
[2022-03-03] MEDS: Flonase NASAL NS SCH (21:13)
[2022-03-04] MEDS: TRANDATE 20 MG/4 ML SYRINGE IV PRN ×2 (04:49→12:09)
[2022-03-04] MEDS: TYLENOL 325 MG PO PRN (06:35)
[2022-03-04 08:10] LABS: Absolute Neutrophil Ct (ANC) 3.94 x10^3/uL (1.4-6.9); Basophil (Absolute #) 0.02 x10^3/uL (0-0.4); Eosinophil % 0.9 % (0.00-5.0); Eosinophil (Absolute #) 0.06 x10^3/uL (0-0.5); Hematocrit 40.2 % (35-47); Hemoglobin 13.4 g/dL (12.0-16.0); Lymphocyte (Absolute #) 2.17 x10^3/uL (1.0-4.6); Lymphocytes % 31.4 % (24.0-44.0); Mean Cell Volume 91.4 fL (78-100); Mean Corpuscular Hemoglobin 30.5 pg (26-32); Mean Corpuscular Hgb Concent. 33.3 g/dL (32-36); Monocyte (Absolute #) 0.69 x10^3/uL (0.0-1.3); Neutrophil % 57.1 % (36.0-66.0); Platelet Count 445 x10^3/uL (150-450); Red Cell Distribution Width 14.6 % (11.5-14.0); White Blood Count 6.9 x10^3/uL (4.0-10.5)
[2022-03-04] MEDS: Advair Hfa 115/21 Common canister IH SCH ×2 (08:10→19:21)
[2022-03-04] MEDS ORDERED: HYDROCODONE-CHLORPHEN ER SUSP PO PRN (08:26)
[2022-03-04 08:33] LABS: ANION GAP 10.1 MEQ/L (5-15); BLOOD UREA NITROGEN 17 mg/dL (7-17); CHLORIDE 101 mmol/L (98-107); Calcium 9.1 mg/dL (8.4-10.2); Carbon Dioxide 26 mmol/L (22-30); Creatinine 1 0.65 mg/dL (0.52-1.04); EST GLOMERULAR FILTRATION RATE > 60.0 ML/MIN; Glucose 103 mg/dL (74-106); Potassium 3.9 mmol/L (3.5-5.1); SODIUM 133 mmol/L (137-145)
[2022-03-04] MEDS: ROCEPHIN 1 Gm-D5w 50 ml Bag** 1 G/50 ML IVPB IV SCH (08:41)
[2022-03-04] MEDS: MYRBETRIQ PO SCH (08:43)
[2022-03-04] MEDS: Prozac 20 MG PO SCH (08:43)
[2022-03-04] MEDS: MYSOLINE 50MG PO SCH ×3 (08:43→21:14)
[2022-03-04] MEDS: NORVASC 5 MG PO SCH (08:43)
[2022-03-04] MEDS: Apresoline 25 MG TABLET PO SCH ×3 (08:43→21:14)
[2022-03-04] MEDS: PLAVIX Tablet PO SCH (08:43)
[2022-03-04] MEDS: Coreg PO SCH ×2 (08:44→21:14)
[2022-03-04] MEDS: Protonix 20MG Tablet PO SCH (08:44)
[2022-03-04] MEDS: Singulair 10 MG PO SCH (08:45)
[2022-03-04] MEDS: Klor Con PO SCH ×2 (08:45→21:14)
[2022-03-04] MEDS: ECOTRIN 81 MG PO SCH (08:45)
[2022-03-04] MEDS: Acidophilus TABLET PO SCH ×3 (08:45→21:14)
[2022-03-04] MEDS: SYNTHROID 75 MCG PO SCH (08:45)
[2022-03-04] MEDS: DECADRON 10MG INJ. IV SCH (08:46)
[2022-03-04] MEDS: REMDESIVIR 100 MG in Sodium Chloride 0.9% 100 ML IV SCH (11:26)
[2022-03-04] MEDS: NORCO 5/325 MG PO SCH ×4 (12:00→21:14)
--- NOTE | 2022-03-04 13:10 | PCM.NOTE ---
Date and Time: 03/04/22 1305 Subjective Assessment: She is feeling better. Fairly steady when up to bathroom, although she is incontinent of urine on her way there (staff aren't able to answer the call light soon enough to get her to the restroom). [place] po. BP 134-187 systolic. - Review of Systems Constitutional: No Fever Respiratory: Cough Objective Exam General Appearance: no apparent distress, alert Neurologic Exam: oriented x 3, cooperative Skin Exam: normal color, warm, dry, No rash Eye Exam: eyes nml inspection Ears, Nose, Throat Exam: moist mucous membranes Neck Exam: normal inspection Respiratory Exam: normal breath sounds, lungs clear, No crackles/rales, No rhonchi, No wheezing Cardiovascular Exam: regular rate/rhythm, normal heart sounds, murmur (II/ sys murmur) Gastrointestinal/Abdomen Exam: soft, normal bowel sounds, No tenderness, No distention, No mass, No guarding, No rebound Extremity Exam: swelling (nonpitting bilat LE edema as usual) Back Exam: normal inspection, No rash OBJECTIVE DATA Vital Signs: Vital Signs - 24 hr Temp Pulse Resp BP BP Pulse Ox 03/04/22 08:13 64 22 96 03/04/22 06:38 97.1 F 64 18 187/79 92 L 03/04/22 05:56 70 172/81 03/04/22 05:16 20 03/04/22 04:49 186/84 94 L 03/04/22 04:00 97.5 F 73 20 186/84 94 L 03/04/22 02:00 18 03/03/22 23:52 96.9 F 73 20 181/86 94 L 03/03/22 22:00 18 03/03/22 20:00 97.8 F 91 H 18 134/74 95 03/03/22 17:55 77 157/75 03/03/22 17:45 78 18 95 03/03/22 16:00 97.1 F 145 H 24 184/88 96 Pain Assessment - Last Documented Pain Intensity 9 Pain Scale Used [facility] Intake and Output: Intake & Output 03/02/22 03/03/22 03/04/22 03/05/22 11:59 11:59 11:59 11:59 Intake Total 1981 1580 1475 Output Total 1900 1300 1750 Balance 81 280 -275 Weight 103.1 kg Lab Results: Lab Results-Last 24 Hours 03/03/22 03/03/22 03/03/22 Range/Units 16:27 16:41 21:31 WBC (4.0-10.5) x10^3/uL RBC (4.1-5.4) x10^6/uL Hgb (12.0-16.0) g/dL Hct (35-47) % MCV (78-100) fL MCH (26-32) pg MCHC (32-36) g/dL RDW (11.5-14.0) % Plt Count (150-450) x10^3/uL MPV (7.5-11.0) fL Gran % (36.0-66.0) % Immature Gran % (Auto) (0.00-0.4) % Nucleat RBC Rel Count (0.00-0.1) % Eos # (Auto) (0-0.5) x10^3/uL Immature Gran # (Auto) (0.00-0.03) x10^3u/L Absolute Lymphs (auto) (1.0-4.6) x10^3/uL Absolute Monos (auto) (0.0-1.3) x10^3/uL Absolute Nucleated RBC (0.00-0.01) x10^3u/L Lymphocytes % (24.0-44.0) % Monocytes % (0.0-12.0) % Eosinophils % (0.00-5.0) % Basophils % (0.0-0.4) % Absolute Granulocytes (1.4-6.9) x10^3/uL Basophils # (0-0.4) x10^3/uL Sodium (137-145) mmol/L Potassium (3.5-5.1) mmol/L Chloride (98-107) mmol/L Carbon Dioxide (22-30) mmol/L Anion Gap (5-15) MEQ/L BUN (7-17) mg/dL Creatinine (0.52-1.04) mg/dL Estimated GFR ML/MIN Glucose (74-106) mg/dL POC Glucometer 143 H 136 H 96 (74 to 106) mg/dL Calcium (8.4-10.2) mg/dL 03/04/22 03/04/2222 Range/Units 06:32 08:00 08:00 WBC 6.9 (4.0-10.5) x10^3/uL RBC 4.40 (4.1-5.4) x10^6/uL Hgb 13.4 (12.0-16.0) g/dL Hct 40.2 (35-47) % MCV 91.4 (78-100) fL MCH 30.5 (26-32) pg MCHC 33.3 (32-36) g/dL RDW 14.6 H (11.5-14.0) % Plt Count 445 (150-450) x10^3/uL MPV 9.0 (7.5-11.0) fL Gran % 57.1 (36.0-66.0) % Immature Gran % (Auto) 0.3 (0.00-0.4) % Nucleat RBC Rel Count 0.0 (0.00-0.1) % Eos # (Auto) 0.06 (0-0.5) x10^3/uL Immature Gran # (Auto) 0.02 (0.00-0.03) x10^3u/L Absolute Lymphs (auto) 2.17 (1.0-4.6) x10^3/uL Absolute Monos (auto) 0.69 (0.0-1.3) x10^3/uL Absolute Nucleated RBC 0.00 (0.00-0.01) x10^3u/L Lymphocytes % 31.4 (24.0-44.0) % Monocytes % 10.0 (0.0-12.0) % Eosinophils % 0.9 (0.00-5.0) % Basophils % 0.3 (0.0-0.4) % Absolute Granulocytes 3.94 (1.4-6.9) x10^3/uL Basophils # 0.02 (0-0.4) x10^3/uL Sodium 133 L (137-145) mmol/L Potassium 3.9 (3.5-5.1) mmol/L Chloride 101 (98-107) mmol/L Carbon Dioxide 26 (22-30) mmol/L Anion Gap 10.1 (5-15) MEQ/L BUN 17 (7-17) mg/dL Creatinine 0.65 (0.52-1.04) mg/dL Estimated GFR > 60.0 ML/MIN Glucose 103 (74-106) mg/dL POC Glucometer 108 H (74 to 106) mg/dL Calcium 9.1 (8.4-10.2) mg/dL 03/04/22 Range/Units 11:17 WBC (4.0-10.5) x10^3/uL RBC (4.1-5.4) x10^6/uL Hgb (12.0-16.0) g/dL Hct (35-47) % MCV (78-100) fL MCH (26-32) pg MCHC (32-36) g/dL RDW (11.5-14.0) % Plt Count (150-450) x10^3/uL MPV (7.5-11.0) fL Gran % (36.0-66.0) % Immature Gran % (Auto) (0.00-0.4) % Nucleat RBC Rel Count (0.00-0.1) % Eos # (Auto) (0-0.5) x10^3/uL Immature Gran # (Auto) (0.00-0.03) x10^3u/L Absolute Lymphs (auto) (1.0-4.6) x10^3/uL Absolute Monos (auto) (0.0-1.3) x10^3/uL Absolute Nucleated RBC (0.00-0.01) x10^3u/L Lymphocytes % (24.0-44.0) % Monocytes % (0.0-12.0) % Eosinophils % (0.00-5.0) % Basophils % (0.0-0.4) % Absolute Granulocytes (1.4-6.9) x10^3/uL Basophils # (0-0.4) x10^3/uL Sodium (137-145) mmol/L Potassium (3.5-5.1) mmol/L Chloride (98-107) mmol/L Carbon Dioxide (22-30) mmol/L Anion Gap (5-15) MEQ/L BUN (7-17) mg/dL Creatinine (0.52-1.04) mg/dL Estimated GFR ML/MIN Glucose (74-106) mg/dL POC Glucometer 162 H (74 to 106) mg/dL Calcium (8.4-10.2) mg/dL Assessment/Plan (1) COVID Current Visit: Yes Status: Acute Assessment & Plan: On dexamethasone and remdesivir. Improved. Likely home tomorrow. Code(s): U07.1 - COVID-19 (2) UTI (urinary tract infection) Current Visit: Yes Status: Acute Qualifiers: Urinary tract infection type: acute cystitis Hematuria presence: without hematuria Qualified Code(s): N30.00 - Acute cystitis without hematuria Assessment & Plan: E. coli, susceptible to rocephin. Home on abx to finish 7d total (day #2 rocephin today). Code(s): N39.0 - URINARY TRACT INFECTION, SITE NOT SPECIFIED (3) Hypertensive urgency Current Visit: Yes Status: Acute Assessment & Plan: changed toprol to coreg. did not tolerate ACEi or ARB. Code(s): I16.0 - HYPERTENSIVE URGENCY (4) Hyponatremia Current Visit: Yes Status: Chronic Assessment & Plan: chronic; improved to 133. Code(s): E87.1 - HYPO-OSMOLALITY AND HYPONATREMIA (5) Hypokalemia Current Visit: Yes Status: Resolved Code(s): E87.6 - HYPOKALEMIA (6) Hypertension Current Visit: No Status: Chronic Qualifiers: Hypertension type: primary hypertension Qualified Code(s): I10 - Essential (primary) hypertension Code(s): I10 - ESSENTIAL (PRIMARY) HYPERTENSION (7) Renal insufficiency Current Visit: No Status: Chronic
[2022-03-04] MEDS: Sodium Chloride 0.9% W/ 20 mEq KCl/LITER 1,000 ML IV SCH (17:59)
[2022-03-04] MEDS: Flonase NASAL NS SCH (21:15)
[2022-03-05] MEDS: NORCO 5/325 MG PO SCH ×2 (05:28→14:18)
[2022-03-05] MEDS: Advair Hfa 115/21 Common canister IH SCH (07:33)
[2022-03-05 08:08] LABS: Absolute Neutrophil Ct (ANC) 4.16 x10^3/uL (1.4-6.9); Basophil (Absolute #) 0.01 x10^3/uL (0-0.4); Eosinophil (Absolute #) 0.07 x10^3/uL (0-0.5); Hematocrit 38.2 % (35-47); Lymphocyte (Absolute #) 2.27 x10^3/uL (1.0-4.6); Lymphocytes % 31.4 % (24.0-44.0); Mean Cell Volume 88.8 fL (78-100); Mean Corpuscular Hemoglobin 30.2 pg (26-32); Monocyte (Absolute #) 0.69 x10^3/uL (0.0-1.3); Monocytes % 9.5 % (0.0-12.0); Neutrophil % 57.6 % (36.0-66.0); Platelet Count 480 x10^3/uL (150-450); Red Cell Distribution Width 14.6 % (11.5-14.0); White Blood Count 7.2 x10^3/uL (4.0-10.5)
[2022-03-05 09:07] LABS: ANION GAP 7.9 MEQ/L (5-15); BLOOD UREA NITROGEN 16 mg/dL (7-17); CHLORIDE 104 mmol/L (98-107); Calcium 8.9 mg/dL (8.4-10.2); Carbon Dioxide 23 mmol/L (22-30); Creatinine 1 0.57 mg/dL (0.52-1.04); EST GLOMERULAR FILTRATION RATE > 60.0 ML/MIN; Glucose 96 mg/dL (74-106); Potassium 3.9 mmol/L (3.5-5.1); SODIUM 131 mmol/L (137-145)
[2022-03-05] MEDS: Coreg PO SCH (09:11)
[2022-03-05] MEDS: ROCEPHIN 1 Gm-D5w 50 ml Bag** 1 G/50 ML IVPB IV SCH (09:11)
[2022-03-05] MEDS: NORVASC 5 MG PO SCH (09:11)
[2022-03-05] MEDS: Prozac 20 MG PO SCH (09:11)
[2022-03-05] MEDS: ECOTRIN 81 MG PO SCH (09:12)
[2022-03-05] MEDS: Acidophilus TABLET PO SCH ×2 (09:12→14:18)
[2022-03-05] MEDS: SYNTHROID 75 MCG PO SCH (09:12)
[2022-03-05] MEDS: MYRBETRIQ PO SCH (09:12)
[2022-03-05] MEDS: Protonix 20MG Tablet PO SCH (09:12)
[2022-03-05] MEDS: Klor Con PO SCH (09:12)
[2022-03-05] MEDS: PLAVIX Tablet PO SCH (09:12)
[2022-03-05] MEDS: Apresoline 25 MG TABLET PO SCH ×2 (09:12→14:18)
[2022-03-05] MEDS: DECADRON 10MG INJ. IV SCH (09:12)
[2022-03-05] MEDS: Singulair 10 MG PO SCH (09:12)
[2022-03-05] MEDS: MYSOLINE 50MG PO SCH ×2 (09:12→14:18)
--- NOTE | 2022-03-05 10:43 | XRAY ---
Indication: Pain following fall. Comparison: None Portable AP pelvis and 2 view left/right hip demonstrates osteopenia and lower lumbar degenerative changes. No other bony, articular, or soft tissue abnormalities.
[2022-03-05] MEDS: Sodium Chloride 0.9% W/ 20 mEq KCl/LITER 1,000 ML IV SCH (14:18)
[2022-03-05 16:44] VITALS: BP 123/72; PULSE 84; O2SAT 95
--- NOTE | 2022-03-05 18:18 | PCM.DS ---
Discharge Summary Date of Admission: 02/28/22 17:20 Date of Discharge: 03/05/22 Admitting Physician: GRACIE GASPAR Primary Care Provider: GRACIE GASPAR Allergies Allergies Tsvctar-EOT-CcK Reductase Inhibitor [Qvfjjjm-Sqd-Ctc Reductase Inhibitor] Adverse Reaction (Severe, Verified 05/31/21 15:55) leg aches Hospital Summary - Hospital Course Hospital Course: Patient was direct admit from Dr Scales's office for treatment of Hyponatremia and generalized weakness who tested positive for Covid on admissoin. Symptoms of cough and malaise but no dyspnea and did not require O2 supplement . BP was elevated ,started on Coreg . UTI treated with Rocephin and Rx Ceftin on discharge .C/O right hip pain and a Hx fall a week ago. Hip/pelvis Xray negative for fracture.PT evaluated patient prior to discharge and advised outpatient PT. - Vitals & Intake/Output Vital Signs: Vital Signs Temperature 97.9 F 03/05/22 16:00 Pulse Rate 84 03/05/22 16:00 Respiratory Rate 16 03/05/22 16:00 Blood Pressure 123/72 03/05/22 16:00 O2 Sat by Pulse Oximetry 95 03/05/22 16:00 Intake & Output: Intake & Output 03/03/22 03/04/22 03/05/22 03/06/22 11:59 11:59 11:59 11:59 Intake Total 1580 1475 1569 300 Output Total 1300 1750 1500 Balance 280 -275 69 300 Weight 103.1 kg - Lab Result Diagrams: 03/05/22 07:56 03/05/22 07:56 Lab Results-Last 24 Hrs: Lab Results-Last 24 Hours 03/04/22 03/05/22 03/05/22 Range/Units 21:12 07:56 07:56 WBC 7.2 (4.0-10.5) x10^3/uL RBC 4.30 (4.1-5.4) x10^6/uL Hgb 13.0 (12.0-16.0) g/dL Hct 38.2 (35-47) % MCV 88.8 (78-100) fL MCH 30.2 (26-32) pg MCHC 34.0 (32-36) g/dL RDW 14.6 H (11.5-14.0) % Plt Count 480 H (150-450) x10^3/uL MPV 9.0 (7.5-11.0) fL Gran % 57.6 (36.0-66.0) % Immature Gran % (Auto) 0.4 (0.00-0.4) % Nucleat RBC Rel Count 0.0 (0.00-0.1) % Eos # (Auto) 0.07 (0-0.5) x10^3/uL Immature Gran # (Auto) 0.03 (0.00-0.03) x10^3u/L Absolute Lymphs (auto) 2.27 (1.0-4.6) x10^3/uL Absolute Monos (auto) 0.69 (0.0-1.3) x10^3/uL Absolute Nucleated RBC 0.00 (0.00-0.01) x10^3u/L Lymphocytes % 31.4 (24.0-44.0) % Monocytes % 9.5 (0.0-12.0) % Eosinophils % 1.0 (0.00-5.0) % Basophils % 0.1 (0.0-0.4) % Absolute Granulocytes 4.16 (1.4-6.9) x10^3/uL Basophils # 0.01 (0-0.4) x10^3/uL Sodium 131 L (137-145) mmol/L Potassium 3.9 (3.5-5.1) mmol/L Chloride 104 (98-107) mmol/L Carbon Dioxide 23 (22-30) mmol/L Anion Gap 7.9 (5-15) MEQ/L BUN 16 (7-17) mg/dL Creatinine 0.57 (0.52-1.04) mg/dL Estimated GFR > 60.0 ML/MIN Glucose 96 (74-106) mg/dL POC Glucometer 104 (74 to 106) mg/dL Calcium 8.9 (8.4-10.2) mg/dL 03/05/22 03/05/22 03/05/22 Range/Units 08:01 12:03 16:39 WBC (4.0-10.5) x10^3/uL RBC (4.1-5.4) x10^6/uL Hgb (12.0-16.0) g/dL Hct (35-47) % MCV (78-100) fL MCH (26-32) pg MCHC (32-36) g/dL RDW (11.5-14.0) % Plt Count (150-450) x10^3/uL MPV (7.5-11.0) fL Gran % (36.0-66.0) % Immature Gran % (Auto) (0.00-0.4) % Nucleat RBC Rel Count (0.00-0.1) % Eos # (Auto) (0-0.5) x10^3/uL Immature Gran # (Auto) (0.00-0.03) x10^3u/L Absolute Lymphs (auto) (1.0-4.6) x10^3/uL Absolute Monos (auto) (0.0-1.3) x10^3/uL Absolute Nucleated RBC (0.00-0.01) x10^3u/L Lymphocytes % (24.0-44.0) % Monocytes % (0.0-12.0) % Eosinophils % (0.00-5.0) % Basophils % (0.0-0.4) % Absolute Granulocytes (1.4-6.9) x10^3/uL Basophils # (0-0.4) x10^3/uL Sodium (137-145) mmol/L Potassium (3.5-5.1) mmol/L Chloride (98-107) mmol/L Carbon Dioxide (22-30) mmol/L Anion Gap (5-15) MEQ/L BUN (7-17) mg/dL Creatinine (0.52-1.04) mg/dL Estimated GFR ML/MIN Glucose (74-106) mg/dL POC Glucometer 87 134 H 139 H (74 to 106) mg/dL Calcium (8.4-10.2) mg/dL Micro Results-Entire Visit: Microbiology 03/02/22 12:31 Urine Culture - Final Urine, Void Escherichia Coli Accuchecks Date 03/05/22 Date 03/05/22 Date 03/05/22 Time 16:44 Time 12:08 Time 08:12 - Radiology Exams Ordered Rad Exams-Entire Visit: Radiology Procedures Category Date Time Status HIP CELESTINO (4V) INCL PELV IF DONE Urgent Exams 03/05/22 09:46 Completed - Procedures and Test Procedures and Tests throughout Hospitalization: Therapy Orders & Screens 02/28/22 14:47 Respiratory Therapy Assessment DAILY Comment: Diagnosis: HYPONATREMIA 03/05/22 12:33 PT Eval & Treat (MD Order) ONCE Reason for Eval:: hip pain, weakness Diagnosis: COVID-19, HYPONATREMIA Discharge Exam General Appearance: no apparent distress Neurologic Exam: alert, oriented x 3, cooperative, normal mood/affect Eye Exam: eyes nml inspection Ears, Nose, Throat Exam: normal ENT inspection, moist mucous membranes Neck Exam: normal inspection Respiratory Exam: diminished breath sounds (bases ,no wheeze, ronchi or rales but reactive airways /coughing spell with deep breath) Cardiovascular Exam: regular rate/rhythm Gastrointestinal/Abdomen Exam: soft (nontender) Back Exam: normal inspection Extremity Exam: normal inspection Skin Exam: normal color, warm, dry Final Diagnosis/Problem List - Final Discharge Diagnosis/Problem (1) COVID Status: Acute Code(s): U07.1 - COVID-19 (2) UTI (urinary tract infection) Status: Acute Assessment & Plan: discharge on Ceftin Code(s): N39.0 - URINARY TRACT INFECTION, SITE NOT SPECIFIED (3) Hypertensive urgency Status: Resolved Assessment & Plan: follow up with Dr Scales Code(s): I16.0 - HYPERTENSIVE URGENCY (4) Hip pain Status: Acute Assessment & Plan: Hx fall -xray neg for fracture Code(s): M25.559 - PAIN IN UNSPECIFIED HIP - Discharge Disposition: Home, Self-Care Condition: Stable Prescriptions: New Benzonatate 100 mg PO TID PRN PRN 20 Days #60 cap PRN Reason: Cough Albuterol Sulfate [Proair Hfa] 8.5 gm IH Q8H PRN PRN 30 Days #1 inhaler PRN Reason: Shortness Of Breath/Wheezing Cefuroxime Axetil 500 mg [Ceftin 500 mg] 500 mg PO BID 4 Days #8 tablet No Action Pantoprazole 20 mg [Protonix 20MG Tablet] 1 tab PO DAILY Levothyroxine Sodium [Euthyrox] 75 mcg PO DAILY Pioglitazone 30 mg [Actos 30 MG] 30 mg PO DAILY Metoprolol Succinate 25 mg PO DAILY Acarbose 50 mg PO TID Budesonide/Glycopyr/Formoterol [Breztri Aerosphere Inhaler] 2 puffs IH DAILY Fluticasone Propionate [Flonase NASAL] 2 sprays INTRANASAL HS Fluoxetine HCl 40 mg PO DAILY Mirabegron [Myrbetriq] 50 mg PO DAILY Primidone 50 MG [Mysoline 50Mg] 100 mg PO TID Hydralazine HCl 10 mg PO TID Clopidogrel Bisulfate [PLAVIX Tablet] 75 mg PO DAILY #0 Amlodipine Besylate 10 tab PO DAILY Aspirin [Aspirin EC] 81 mg PO DAILY hydroCHLOROthiazide [Hydrochlorothiazide] 12.5 mg PO DAILY Tramadol HCl 50 mg [Ultram 50 mg] 50 mg PO Q4HPRN PRN PRN Reason: Pain Cyclobenzaprine HCl 10 mg [Cyclobenzaprine 10 MG] 10 mg PO DAILY Albuterol Sulfate [Proair Hfa] 8.5 gm IH Q8HPRN PRN PRN Reason: Shortness Of Breath Montelukast Sodium 10 mg [Singulair 10 MG] 1 tab PO DAILY Instructions: Hyponatremia (DC), COVID-19 (DC), Preventing the Spread of an Infectious Disease Additional Instructions: YOU CAN CALL CASE MANAGEMENT AT [phone] ext [phone] IF YOU WANT TO ADD HOME HEALTHCARE CALL TO SCHEDULE AN APPOINTMENT WITH DR SCALES FOR A FOLLOW UP THIS WEEK Follow up with: GRACIE GASPAR [Primary Care Provider] - (needs to schedule follow up in one week with Dr Scales)
== END 2022-03-05 18:00 | disposition home or self-care (01) | DRG 178 ==
LOC: MED SURG 17:20 → OBSVTOIN 02-28 17:20
PROVIDERS: ADMIT Family Medicine; ATTEND Family Medicine
DX: U07.1 COVID-19 (principal); E87.1 Hypo-osmolality and hyponatremia; N39.0 Urinary tract infection, site not specified; I16.0 Hypertensive urgency; M25.551 Pain in right hip; W18.30XD Fall on same level, unspecified, subsequent encounter; I10 Essential (primary) hypertension; E87.6 Hypokalemia; N28.9 Disorder of kidney and ureter, unspecified; Z79.899 Other long term (current) drug therapy; Z20.828 Contact with and (suspected) exposure to other viral communicable diseases
CPT/HCPCS: 0241U; 36415; 73522; 80048; 81015; 82947; 83735; 85025; 85027; 87077; 87086; 87186; 93268; 94640; 94760; J0248; J0360; J0696; J1100; A9270-GY; G0378